=== PATIENT | female | born 1960 | race Caucasian/White ===

== ENCOUNTER → 2017-03-14 08:38 | Outpatient (CLI) | payer BC, MEDICARE, SELFPAY ==
--- NOTE | 2017-03-14 09:01 | MM_ITS ---
MM Dig screening mamm BI w/CAD CAD Screening ORDERING PHYSICIAN : Nia Pimentel PATIENT AGE: 56 years GENDER: Female COMPARISON: Previous mammograms: 20 INDICATION: . No hormones. No new complaints Previous bilateral breast reduction noncontributory family history TECHNIQUE: Standard CC and MLO images were obtained. R2 CAD reviewed. FINDINGS: No new areas of concern either breast Low-density breast bilaterally which optimize mammography value it as screening tool. There is been no significant change since previous studies from November 2011 and May 2013, and. RIGHT BREAST:Low-density breast no interval change LEFT BREAST:Low-density breast normal change IMPRESSION: Stable bilateral mammogram with no new areas of concern. Bilateral follow-up one year recommended BI-RADS Category: 2 Benign Finding(s) RECOMMENDED FOLLOW-UP: 1YR - 1 YEAR FOLLOW-UP (A letter has been sent to the patient regarding results of the study.) :
== END ==
PROVIDERS: PCP Nurse Practitioner Family; Visit Provider Nurse Practitioner Family
DX: Z12.31 Encounter for screening mammogram for malignant neoplasm of breast (principal)
CPT/HCPCS: 77067

== ENCOUNTER → 2018-09-15 09:11 | Outpatient (POV) | payer MEDICARE, SELFPAY | PROVIDERS: PCP Nurse Practitioner Family; Visit Provider Nurse Practitioner Family | DX: Z00.00 Encounter for general adult medical examination without abnormal findings (principal) ==

== ENCOUNTER → 2018-09-18 09:32 | Outpatient (CLI) | payer MEDICARE, SELFPAY ==
--- NOTE | 2018-09-18 09:35 | MM_ITS ---
MM Dig screening mamm BI w/CAD ORDERING PHYSICIAN : Nia Pimentel PATIENT AGE: 58 years GENDER: Female COMPARISON: March 2017 and May 2013 INDICATION: ITS.REASON: SCREENING no hormones. No complaints. Previous breast reduction Family history noncontributory TECHNIQUE: Standard CC and MLO images were obtained. R2 CAD reviewed. Additional MLO view left breast included FINDINGS: Low-density breast. Generalized fatty replacement. No areas of significant concern. No dominant no suspicious mass. . Scattered benign calcifications. No suspicious calcifications. IMPRESSION no significant change since prior study March 2017 CAD computer review highlights no areas of concern either. Bilateral follow-up in one year be adequate IMPRESSION: Stable bilateral mammogram. No new areas of concern. Bilateral follow-up in one year recommended Low-density fatty breast. Mammography most optimal and breast of this character. BI-RADS Category: 1 Negative RECOMMENDED FOLLOW-UP: 1YR 1 YEAR FOLLOW-UP (A letter has been sent to the patient regarding results of the study.)
== END ==
PROVIDERS: PCP Nurse Practitioner Family; Visit Provider Nurse Practitioner Family
DX: Z12.31 Encounter for screening mammogram for malignant neoplasm of breast (principal)
CPT/HCPCS: 77067

== ENCOUNTER → 2019-10-13 11:10 | Outpatient (POV) | payer MEDICARE, SELFPAY | PROVIDERS: Visit Provider Dermatology | DX: Z00.00 Encounter for general adult medical examination without abnormal findings (principal) ==

== ENCOUNTER → 2019-12-15 13:10 | Outpatient (POV) | payer SELFPAY | PROVIDERS: Visit Provider Dermatology | DX: Z00.00 Encounter for general adult medical examination without abnormal findings (principal) ==

== ENCOUNTER → 2020-02-15 09:23 | Outpatient (CLI) | payer MEDICARE, SELFPAY ==
--- NOTE | 2020-02-15 09:59 | XR_ITS ---
PROCEDURE: XR FOOT WT BEARING LT 3V CLINICAL INDICATION: pain COMPARISON: CR FTL3 FOOT-LT-3 VIEWS from 07/29/2015 FINDINGS: There is a nondisplaced oblique fracture involving the mid distal aspect of the 5th metatarsal. There is pes planus with degenerative changes in the talonavicular joint. Other findings:None. IMPRESSION: Nondisplaced 5th metatarsal fracture the Dictated by: Naldo Roberto MD 02/15/2020 16:49 Naldo Roberto MD in [place] 02/15/2020 16:49
--- NOTE | 2020-02-15 09:59 | XR_ITS ---
PROCEDURE: XR FOOT WT BEARING RT 3V CLINICAL INDICATION: pain COMPARISON: CR FTL3 FOOT-LT-3 VIEWS from 07/29/2015 FINDINGS: Mild hallux valgus with osteoarthritis for the 1st MTP joint and bunion formation. Small metallic density is present along the proximal and lateral aspect of the proximal phalanx of the 5th toe. There is moderate pes planus. The joint spaces are well-preserved. No significant degenerative/arthritic changes. No erosive changes evident. Other findings:None. IMPRESSION: Hallux valgus with pes planus. Small metallic density at the base and lateral aspect of the proximal phalanx of the 5th toe Dictated by: Naldo Roberto MD 02/15/2020 16:51 Naldo Roberto MD in [place] 02/15/2020 16:51
== END ==
PROVIDERS: PCP Nurse Practitioner Family; Visit Provider Podiatrist
DX: M79.672 Pain in left foot (principal); M79.671 Pain in right foot
CPT/HCPCS: 73630

== ENCOUNTER → 2020-03-15 11:21 | Outpatient (CLI) | payer MEDICARE, SELFPAY ==
--- NOTE | 2020-03-15 11:27 | XR_ITS ---
PROCEDURE: XR FOOT WT BEARING LT 3V CLINICAL INDICATION: PAIN COMPARISON: CR FTL3 FOOT-LT-3 VIEWS from 07/29/2015 CR XR FOOT WT BEARING RT 3V from 02/15/2020 CR XR FOOT WT BEARING LT 3V from 02/15/2020 FINDINGS: There is a healing mildly displaced fracture involving the shaft of the 5th metatarsal. There is medial angulation and mild medial displacement of the distal fracture fragment. The displacement and angulation has slightly increased. There is however developing callus formation consistent with healing. There are osteoarthritic changes of the talonavicular and navicular cuneiform joint with pes planus. IMPRESSION: Healing 5th displaced 5th metatarsal fracture with pes planus Dictated by: Naldo Roberto MD 03/15/2020 13:03 Naldo Roberto MD in [place] 03/15/2020 13:03
== END ==
PROVIDERS: PCP Nurse Practitioner Family; Visit Provider Podiatrist
DX: M79.672 Pain in left foot (principal)
CPT/HCPCS: 73630

== ENCOUNTER → 2020-03-16 08:45 | Outpatient (CLI) | payer MEDICARE, SELFPAY ==
--- NOTE | 2020-03-16 08:51 | MR_ITS ---
PROCEDURE: MR HEAD/BRAIN WO/W CON CLINICAL INDICATION: BLURRY VISION EVALUATE FOR CVA. ALTERED MENTAL STATUS. BUN:17 CRE:1.39 GFR:42 20ML PROHANCE GIVEN LOT:[id number] EXP: MAR 2022 COMPARISON: No exams were available for comparison TECHNIQUE: Routine multiplanar multi echo sequences are performed without and with gadolinium enhancement. FINDINGS: No evidence of acute infarction. No midline shift or mass effect. The cerebellopontine angles, cerebellum, and brainstem have an unremarkable appearance. Unremarkable white matter signal intensity. No enhancing lesions are evident. The pituitary, optic chiasm, corpus callosum, and craniocervical junction have an unremarkable appearance. No mastoid effusion or sinus air-fluid level. There is mild leftward nasal septal deviation. The hippocampal gyri are unremarkable in the temporal horns are symmetric. IMPRESSION: Negative MRI of the brain without and with contrast. No evidence of acute infarction Dictated by: Naldo Roberto MD 03/17/2020 09:25 Naldo Roberto MD in [place] 03/17/2020 09:25
--- NOTE | 2020-03-16 09:59 | CA_ITS ---
APPROVED REPORT Customs Inspector: Winifred Murcia RVT Laterality: Bilateral Study Quality: Good Indications: Dizziness and Vertigo, AMS,BLURRED VISION Risk Factors Hypertension: Hyperlipidemia Doppler Spectral Velocity Analysis ECA (R) 102.50/25.40 cm/s ECA (L) 71.90/12.20 cm/s dICA (R) 129.40/61.00 cm/s dICA (L) 96.00/38.60 cm/s Jackson (R) 96.30/33.70 cm/s Jackson (L) 71.80/27.70 cm/s pICA (R) 85.30/24.70 cm/s pICA (L) 94.30/35.20 cm/s dCCA (R) 78.30/27.60 cm/s dCCA (L) 89.10/37.70 cm/s pCCA (R) 85.40/24.80 cm/s pCCA (L) 99.40/35.10 cm/s Vert (R) 37.70/11.10 cm/s Vert (L) 50.60/21.40 cm/s ICA/CCA 1.65 ICA/CCA 1.08 Findings Study suggests no evidence of stenosis of the bilateral internal cartoid arteries. Antegrade flow seen bilateral vertebral arteries. Conclusion Study suggests no evidence of stenosis of the bilateral internal cartoid arteries. Antegrade flow seen bilateral vertebral arteries. Electronically signed by : Naldo Roberto MD 03/16/2020 16:07:20
== END ==
PROVIDERS: PCP Nurse Practitioner Family; Visit Provider Nurse Practitioner Family
DX: R41.82 Altered mental status, unspecified (principal); H53.10 Unspecified subjective visual disturbances
CPT/HCPCS: 70553; 93880; A9576

== ENCOUNTER → 2020-05-04 12:01 | Outpatient (CLI) | payer MEDICARE, SELFPAY ==
[2020-05-04 15:11] LABS: Coronavirus 19 IgG Antibody Negative (Negative); Coronavirus 19 IgM Antibody Negative (Negative)
== END ==
PROVIDERS: Visit Provider Internal Medicine Gastroenterology
DX: Z01.818 Encounter for other preprocedural examination (principal); Z20.822 Contact with and (suspected) exposure to COVID-19; Z13.810 Encounter for screening for upper gastrointestinal disorder
CPT/HCPCS: 36415; 86328

== ENCOUNTER 2020-05-06 11:16 | Day surgery (SDC) | payer MEDICARE, SELFPAY ==
[2020-05-03 14:15] VITALS: BMI 33.0
[2020-05-06] VITALS (10 sets, daily range): BP systolic 133–153; BP diastolic 87–106; PULSE 74–101; RESP 16–18; TEMP 36.2–36.8; O2SAT 94–98
--- NOTE | 2020-05-06 12:43 | HMH.ANESCL ---
[facility] Anesthesia Checklist - Patient Identification Patient Identification: Arm Band - Structural Data Admitted From: Home Planned Operative Procedure/s: EGD Consent for Planned Operative Procedure(s) Verified: Yes - NPO Status Verified Time NPO: 00:00 - Additional verifications Anesthesia Reactions: No Hx Blood Transfusions: No Blood Transfusion Reaction: No - Airway Assessment Dentition: Good Dentition - Neurological Assessment Level of Consciousness: Awake - Anesthesia Plan Anesthesia Risk discussed: Yes Anesthesia Plan: Verified ASA Class: III Anesthesia Type: MAC [facility] History I have reviewed the patient's past medical history: Yes Medical History: Reports:: Deep Vein Thrombosis, Hyperlipidemia, Lung Disease, Migraine Denies:: Cancer, Diabetes Mellitus Type 1, Diabetes Mellitus Type 2, Internal Pacemaker, MRSA, Seizures *Have you ever received a pneumonia vaccine?: No *Have you received a flu vaccine this season?: Yes Other Medical History: Reports: Other. Denies: Blood Transfusion Reaction Anesthesia experience/problems:: None Laterality Cases: Right: Arthroscopy Shoulder Other Surgeries: Yes: Hysterectomy-Total, Other. No: Pacemaker Amputation: No Fractures: No - *Social History Last grade of school completed: Advanced degree Smoking Status: Never smoker Alcohol Intake: current Alcohol Intake Frequency:: a few times a month Substance Use Type: other *Occupational Status:: unemployed Housing: house Household Members: spouse, family *Travel in the last 8 weeks: None Family Hx:: No significant family history
--- NOTE | 2020-05-06 12:58 | HMH.PROC ---
[facility] Procedure Note Procedure Note:: Upper Endoscopy Procedure Report: Esophagogastroduodenoscopy with cold biopsies and TTS balloon dilation Endoscopost: Mannie Campbell II, MD Referring Physician: TATI Leonardo Date of Procedure: May 06, 2020 Equipment: Olympus GIF 190 standard upper endoscope Sedation: MAC sedation Indications: Mrs. Rivas is a 59-year-old female with a history of GERD, esophageal chest pain and esophageal dyskinesia. The patient does report some recent swallowing difficulties. She was seen recently by Bailey DUFFY. The patient does report some bowel evacuation difficulties. The patient has been on Reglan, Motegrity, MiraLAX plus Citrucel. Overall she is doing much better than she had previously. EGD is performed for further evaluation. Her last EGD in July 2018 showed marked esophageal dysmotility as well as retained gastric food content. Procedure: Prior to the procedure, a history and physical exam was performed, and patient's medications and allergies were reviewed. The risks, benefits and alternatives of the sedation and procedure were discussed with the patient. All questions were answered and informed consent was obtained. The patient was brought to the procedure room. Patient identification and proposed procedure were verified by the physician and the nurse. The patient was placed in a left lateral decubitus position and the scope was passed under direct vision. Throughout the procedure, the patient's blood pressure, pulse, and oxygen saturations were monitored continuously. The upper GI endoscopy was accomplished without difficulty. The patient tolerated the procedure well. Findings: The scope was passed directly into the upper esophagus and advanced to the third portion of the duodenum. The post bulbar duodenum and duodenal bulb were normal with normal mucosa and conniventes. The scope was withdrawn through a normal duodenal bulb and pylorus into the stomach. There was some bile reflux with mild linear reactive gastropathy of the antrum and body of the stomach. The remainder of the antrum, body and fundus of the stomach were grossly normal. Upon retroflexion there was no hiatal hernia. 2 biopsies were taken in the antrum and along the lesser curvature for histology to rule out gastritis and/or H pylori. The scope was then withdrawn into the esophagus. There was no evidence of reflux esophagitis. 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 The entire esophagus was dilated to 60 Chinese/20 mm with a TTS hydrostatic balloon. There was some resistance at the cricopharyngeus. The remainder of the esophageal mucosa was normal. Impression: 1. Cricopharyngeal spasm status post dilation to 20 mm 2. Marked esophageal dysmotility ( corkscrew esophagus ). 3. Linear reactive gastropathy Plan: I will follow-up the biopsies. The patient is clearly improved with the promotility therapy. I would consider adding herbal Iberogast.
--- NOTE | 2020-05-06 13:02 | P.PN_ITS ---
[facility] Anesthesia Record Part I Intake, IV Amount: 200 Estimated blood loss (mL): 0 Urine output (mL): 0 Blood Pressure: 136/90 SaO2: 94 Pulse Rate: 74 Respiratory Rate: 16 Temperature: 97.4 F Patient is:: Awake Stable to PACU at:: 13:00
--- NOTE | 2020-05-06 15:01 | P.PN_ITS ---
[facility] Anesthesia Record Part II Discharge Time: 14:00 Destination: Surgical Day Care (OP Surgery) PACU nurse assessment reviewed?: Yes Patient Condition:: Good Anesthesia Complications:: None Swallowing reflex intact?: Yes Cyanosis?: No Blood Pressure: 140/87 Pulse Rate: 98 Temperature: 97.2 F Mental Status: Alert & Oriented Pain level:: 0 Nausea and/or vomitting:: None Intake, IV Amount: 200
== END 2020-05-06 14:00 | disposition home or self-care (01) ==
LOC: OUTP 11:18
PROVIDERS: PCP Nurse Practitioner Family; Visit Provider Internal Medicine Gastroenterology
PROC: 0DJ08ZZ Inspection of Upper Intestinal Tract, Via Natural or Artificial Opening Endoscopic (ICD-10-PCS; CPT 43235; principal; 2020-05-06 12:30)
DX: J39.2 Other diseases of pharynx (principal); K22.4 Dyskinesia of esophagus; K31.9 Disease of stomach and duodenum, unspecified; E78.5 Hyperlipidemia, unspecified; J98.4 Other disorders of lung; G43.909 Migraine, unspecified, not intractable, without status migrainosus; I82.409 Acute embolism and thrombosis of unspecified deep veins of unspecified lower extremity; Z79.899 Other long term (current) drug therapy; Z88.2 Allergy status to sulfonamides; Z88.7 Allergy status to serum and vaccine
CPT/HCPCS: 43239; 43249; 88305; C1726

== ENCOUNTER → 2020-05-16 13:24 | Outpatient (CLI) | payer MEDICARE, SELFPAY ==
--- NOTE | 2020-05-16 13:28 | MM_ITS ---
PROCEDURE: MM DIG SCREENING MAMM BI W/CAD Digital Breast Tomosynthesis Included CLINICAL INDICATION: SCREENING There is no personal or family history of breast cancer. There has been previous bilateral breast reduction surgery. COMPARISON: MG DMSB DIG MAMM-SCREEN BELA from 05/22/2013 MG [facility] MM Dig screening mamm BI w/CAD from 03/14/2017 MG MM DIG SCREENING MAMM BI W/CAD from 09/18/2018 TECHNIQUE: Standard CC and MLO images and 3D Tomosynthesis was obtained. R2 CAD reviewed. FINDINGS: Breasts are composed primarily of minimal scattered fibroglandular densities in each breast. There are no CAD markings. There are few benign-appearing microcalcifications in each breast. There is no new or suspicious lesion in either breast and no suspicious microcalcifications. IMPRESSION: Fatty type breast parenchyma with no suspicious lesions seen BI-RAD Category: 2 Benign Finding(s) FOLLOW-UP: 1YR 1 Year Follow-up (A letter has been sent to the patient regarding results of the study.) Dictated by: Dr. Daniel Barroso MD 05/20/2020 08:59 Dr. Daniel Barroso MD in [place] 05/20/2020 08:59
== END ==
PROVIDERS: PCP Nurse Practitioner Family; Visit Provider Nurse Practitioner Family
DX: Z12.31 Encounter for screening mammogram for malignant neoplasm of breast (principal)
CPT/HCPCS: 77063; 77067

== ENCOUNTER 2020-10-12 08:00 | Outpatient (RCR) | payer OTHER, SELFPAY | END 2020-11-09 15:00 | disposition home or self-care (01) | LOC: PT.CARL 08:00 | PROVIDERS: Visit Provider Anesthesiology Pain Medicine | DX: M53.3 Sacrococcygeal disorders, not elsewhere classified (principal); M51.26 Other intervertebral disc displacement, lumbar region; M47.817 Spondylosis without myelopathy or radiculopathy, lumbosacral region | CPT/HCPCS: 97010; 97014; 97033; 97035; 97110; 97140; 97163; 97164; G0283 ==

== ENCOUNTER → 2020-11-01 13:54 | Outpatient (POV) | payer SELFPAY | PROVIDERS: Visit Provider Dermatology | DX: Z00.00 Encounter for general adult medical examination without abnormal findings (principal) ==

== ENCOUNTER 2023-02-19 16:23 | Outpatient (CLI) | payer MEDICARE, SELFPAY ==
[2023-02-19 18:08] LABS: Barbiturates Screen,Urine Negative ng/ml (<200); Benzodiazepines Screen,Urine Negative ng/ml (<200); Cocaine Screen,Urine Negative ng/ml (<300); Methadone Screen,Urine Negative ng/ml (<300); Opiate Screen,Urine Positive ng/ml (<300); Phencyclidine Screen,Urine Negative ng/ml (<25)
[2023-02-19 18:12] LABS: Cannabinoid Screen,Urine Negative ng/ml (<50)
[2023-02-20 14:44] LABS: Amphetamine/Metha Screen,Urine Negative ng/ml (<1000)
== END 2023-02-19 23:59 ==
LOC: LAB.DROPOF 16:24
PROVIDERS: PCP Family Medicine; Visit Provider Family Medicine
DX: G89.29 Other chronic pain (principal); M54.9 Dorsalgia, unspecified
CPT/HCPCS: 80307

== ENCOUNTER 2024-02-27 14:20 | Outpatient (CLI) | payer MEDICARE, SELFPAY ==
[2024-02-27 16:26] LABS: Basophils # 0.1 K/mm3 (0-0.2); Basophils % 0.6 % (0.1-2.0); Eosinophils # 0.8 K/mm3 (0.0-0.4); Eosinophils % 9.7 % (0.1-12.0); Hematocrit 34.2 % (37.0-47.0); Hemoglobin 10.7 g/dL (12.2-16.2); Lymphocytes # 1.4 K/mm3 (0.7-4.5); Lymphocytes % 16.6 % (10-50); Mean Corpuscular HGB Conc 31.3 g/dL (31.8-35.4); Mean Corpuscular Hemoglobin 27.8 pg (27.0-31.2); Mean Corpuscular Volume 88.8 fl (81-99); Mean Platelet Volume 9.2 fl (7.4-10.4); Monocytes # 0.5 K/mm3 (0.1-1.0); Neutrophils # 5.6 K/mm3 (1.8-7.8); Neutrophils % 66.3 % (37.0-80.0); Platelet Count 548 K/mm3 (142-424); Red Blood Count 3.85 M/mm3 (4.20-5.40); Red Cell Distribution Width 14.7 % (11.5-17.5); White Blood Count 8.4 K/mm3 (4.8-10.8)
[2024-02-27 16:55] LABS: Albumin Level 3.7 g/dl (3.5-5.0); Chloride 100 mmol/L (98-107); Potassium 5.1 mmoL/L (3.5-5.1); Sodium 133 mmol/L (136-145)
[2024-02-27 16:58] LABS: Alanine Aminotransferase 14 U/L (12-78); Albumin/Globulin Ratio 1.4 (1.1-1.8); Alkaline Phosphatase 140 U/L (38-126); Anion Gap 13.1 mEq/L (5-15); Aspartate Amino Transferase 21 U/L (14-36); Bilirubin,Total 0.4 mg/dl (0.2-1.3); Blood Urea Nitrogen 21 mg/dl (7-17); Calcium 9.9 mg/dl (8.4-10.2); Carbon Dioxide 25 mmol/L (22.0-30.0); Estimated Glomerular Filt Rate 38 ml/min (>60); GFR (African American) 46 ML/MIN (>60); Globulin 2.7 g/dL (1.3-3.2); Glucose 98 mg/dl (74-100); Total Protein,Serum 6.4 g/dl (6.3-8.2)
== END 2024-02-27 23:59 | disposition home or self-care (01) ==
LOC: LAB.DROPOF 02-28 09:03
PROVIDERS: PCP Family Medicine; Visit Provider Family Medicine
DX: S72.009A Fracture of unspecified part of neck of unspecified femur, initial encounter for closed fracture (principal)
CPT/HCPCS: 80053; 85025

== ENCOUNTER 2024-07-21 11:15 | Outpatient (CLI) | payer MEDICARE, SELFPAY ==
--- OUTSIDE RECORDS SUMMARY | 2024-06-17 07:06 | XMS_ITS ---
[facility] [place] Address [address] [place] [address] Care Team Providers Care Sales And Service Advisor Name Role Phone Manolo Campbell Primary Care Provider unknown, Unknown Unavailable Unavailable REASON FOR VISIT Refills Medications Medication SIG (Take, Route, Frequency, Duration) Notes Start Date End Date Status Butorphanol Tartrate 10 MG/ML 1 spray Nasally in each nostril for migraines, may repeat in 60-90 minutes PRN, not for daily use. for 30 days 06/17/2024 07/17/2024 Active Qulipta 60 MG 1 tablet Orally once a day for 30 days 07/17/2024 Active HYDROcodone-Acetaminophen 7.5-325 MG 1 tab(s) orally twice a day, may take a third tablet as needed for severe breakthrough pain for 30 days 06/17/2024 07/17/2024 Active Gabapentin 600 MG 1 tablet Orally twic e a day for 30 days 06/17/2024 Active Promethazine HCl 25 MG 1 tablet as neede d Orally once to twice a day as needed for nausea for 30 days Active Encounters Encounter Location Date Provider [facility] [address] [place] [address] 06/17/2024 Manolo Campbell Migraine, unspecified, not intractable, without status migrainosus* G43.909 Assessments Encounter Date Diagnosis (ICD Code) Assessment Notes Treatment Notes Treatment Clinical Notes Section Notes 06/17/2024 Migraine, unspecified, not intractable, without status migrainosus* (ICD-10 - G43.909) *Will CTM benefit from Qulipta. Patient currently takes Ubrelvy, butorphanol IN, and nortriptyline with persistent migraines 2-3 times per week. Patient has tried and failed ibuprofen/APAP, sumatriptan and rizatriptan. Plan Of Treatment Medication Medication Name Sig Start Date Stop Date Notes Butorphanol Tartrate 10 MG/ML 1 spray Na jason in each nostril for migraines, may repeat in 60-90 minutes PRN, not for daily use. for 30 days 06/17/2024 07/17/2024 Qulipta 60 MG 1 tablet Orally once a day for 30 days 07/17/2024 HYDROcodone-Acetaminophen 7.5-325 MG 1 tab(s) orally twice a day, may take a third tablet as needed for severe breakthrough pain for 30 days 06/17/2024 07/17/2024 Gabapentin 600 MG 1 tablet Orally twic e a day for 30 days 06/17/2024 Promethazine HCl 25 MG 1 tablet as neede d Orally once to twice a day as needed for nausea for 30 days Next Appt Details Provider Name:Miguel Ángel Moreland , 08/12/2024 10:40:00 AM, [address], [place], [address], Progress Notes * Rajwinder RYANOB:1960 (63 yo F)Acc No.[id number]:06/17/2024 Patient: Ced IBARRARere :1960 A ge:63 Y S ex:Female Address:[address] [place] [address], [place] [address] * Refills Refill Butorphanol Tartrate Solution, 10 MG/ML, Nasally, 15 mL, 1 spray, in each nostril for migraines, may repeat in 60-90 minutes PRN, not for daily use., 30 days Refill Qulipta Tablet, 60 MG, Orally, 30 Tablet, 1 tablet, once a day, 30 days Refill Promethazine HCl Tablet, 25 MG, Orally, 60 tablets, 1 tablet as needed, once to twice a day as needed for nausea, 30 days Refill HYDROcodone-Acetaminophen Tablet, 7.5-325 MG, orally, 75 tablets, 1 tab(s), twice a day, may take a third tablet as needed for severe breakthrough pain, 30 days, Refills=0 Refill Gabapentin Tablet, 600 MG, Orally, 60 Tablet, 1 tablet, twice a day, 30 days * true * Date: Generated for Esme haji/Lulu/Philip on: 0 07/22/2024 11:42 AM EDT
--- OUTSIDE RECORDS SUMMARY | 2024-07-15 06:20 | XMS_ITS ---
Author Organization [facility] Address [address] [address] Care Team Providers Care Lime Mixer Name Role Phone Manolo Campbell Primary Care Provider unknown, Unknown Unavailable Unavailable Miguel Ángel Moreland Unavailable [phone] Allergies Allergen (clinical drug ingredient) Drug/Non Drug Allergy documented on EMR Reaction Allergy Type Onset Date Status SULFA (uncoded) Rash Allergy Acti ve ENTEX LA (uncoded) Unknown Allergy A ctive TETNUS (uncoded) Unknown Allergy Act avel TORADOL (uncoded) Upset stomach Allergy Active ciprofloxacin Cipro Swelling, mouth, SOB Drug Allergy Active valproate Depakote Unknown Drug Allergy Active REASON FOR VISIT right hip pain Medications Medication SIG (Take, Route, Frequency, Duration) Notes Start Date End Date Status Butorphanol Tartrate 10 MG/ML 1 spray Nasally in each nostril for migraines, may repeat in 60-90 minutes PRN, not for daily use. for 30 days Active HYDROcodone-Acetaminophen 7.5-325 MG 1 tab(s) orally three times a day for 30 days Active Gabapentin 600 MG 1 tablet Orally twic e a day for 30 days Active Qulipta 60 MG 1 tablet Orally once a day for 30 days Active Promethazine HCl 25 MG 1 tablet as neede d Orally once to twice a day as needed for nausea for 30 days Active Vital Signs Blood pressure systolic 122 mm Hg 07/16/19 25 Blood pressure diastolic 76 mm Hg 025 Height 70 in 07/15/2024 Weight 171 lbs 07/15/2024 BMI 24.53 BMI 07/15/2024 Encounters Encounter Location Date Provider Diagnosis [facility] [address] [place] [address] 07/15/2024 Miguel Ángel Garciasirirose marie Presence of right artificial hip joint* Z96.641 ; termite treater helper (current) drug therapy* Z79.899 ; Right foot pain* M79.671 ; Sacroiliac dysfunction* M53.3 ; Cervical spondylosis WRM M47.812 ; Migraine, unspecified, not intractable, without status migrainosus* G43.909 and Myofascial Pain* M79.18 Assessments Encounter Date Diagnosis (ICD Code) Assessment Notes Treatment Notes Treatment Clinical Notes Section Notes 07/15/2024 Presence of right artificial hip joint* (ICD-10 - Z96.641) *On 05/24/24 the patient fell at home after her left foot was caught in bedding leading to her falling on her right hip, site of right JOLIE, with subsequent dislocation. Records for hospital stay have been uploaded to her chart, pertinent for manual relocation of JOLIE but also noted fever during her stay with no know source after evaluation and FUP with ID. Patient was not discharged on a course of PO abx but has appointments scheduled to see her PCP and orthopedist at the end of June 2024. Patient was prescribed 5 mg Percocet during her hospital stay noting that her baseline 5 mg [place] has been insufficient in management of her pain following fall. 07/15/2024 senior living (current) drug therapy* (ICD-10 - Z79.899) *Will trial rotation of her 5 mg BID [place] to 7.5 mg TID for acute worsening pain following dislocation while she completed home health PT to rehabilitate her right hip perimusculature. Records in chart from her hospital stay including details surrounding unidentified fever that ID could not localize and did not treat with abx. Scheduled to see her PCP and orthopedist at the end of June 2024. Will maintain acute dose increase over the next two months with plans/consideratio n for taper back to 5 mg BID around August 2024. 07/15/2024 Right foot pain* (ICD-10 - M79.671) *Patient is s/p recovery from her right foot hardware removal and hallux valgus correction from 04/30/24 with noted increased pain but states having received rx from her surgeon for her baseline opiate dosing but to allow being taken every 4 hours as needed. She did not pickling grader the prescription sent by our office. 07/15/2024 Sacroiliac dysfunction* (ICD-10 - M53.3) *Patient presents with symptoms of SI and lumbar pain with right sided compensations from antalgic gait over the prolonged period having pain/dysfunction. The localized pain without neurological loss may be indicative of local ligamentous persistent sprain. This would affect pain locally and biomechanics and the proximal and distal joint attachments. Adaptive weakness in the hip is also present, and this will further propagate pain in the lumbosacral spine. 07/15/2024 Cervical spondylosis WRM (ICD-10 - M47.812) 07/15/2024 Migraine, unspecified, not intractable, without status migrainosus* (ICD-10 - G43.909) *Will CTM benefit from Qulipta. Patient currently takes Ubrelvy, butorphanol IN, and nortriptyline with persistent migraines 2-3 times per week. Patient has tried and failed ibuprofen/APAP, sumatriptan and rizatriptan. 07/15/2024 Myofascial Pain* (ICD-10 - M79.18) Plan Of Treatment Medication Medication Name Sig Start Date Stop Date Notes Butorphanol Tartrate 10 MG/ML 1 spray Na jason in each nostril for migraines, may repeat in 60-90 minutes PRN, not for daily use. for 30 days HYDROcodone-Acetaminophen 7.5-325 MG 1 tab(s) orally three times a day for 30 days Gabapentin 600 MG 1 tablet Orally twic e a day for 30 days Qulipta 60 MG 1 tablet Orally once a day for 30 days Promethazine HCl 25 MG 1 tablet as neede d Orally once to twice a day as needed for nausea for 30 days Next Appt Details Follow Up: 4 Weeks, Reason: Hip pain Provider Name:Miguel Ángel Moreland , 08/12/2024 10:40:00 AM, [address], [place], [address], Progress Notes * Nae RYAN:1960 (63 yo F)Acc No.[id number]:07/15/2024 Patient: Rere SHAIKH Provider: Gerardo Moreland PA-C :1960 A ge:63 Y S ex:Female Date:07/15/2024 Address:[facility] [address] [place], [id number] Pcp:Manolo Campbell Check Out:10:50 AM EST Subjective: * Chief Complaints: * 1 . Right hip pain. * HPI: B ack or Hip Pain: 07/15/24 - Zaria tom presents regarding r ight lower back pain at waistline along with aching pain across her anterior thigh and medial lower leg with N/T distal to her ankle in relation to severe fracture in 2021. Baseline pain became worse around August 2023 after tripping over her dog and landing on her hands and knees. Last advanced i maging completed > 5 years ago. PT last completed > 5 years, attempts HEP but difficult to complete 2/2 pain associated with completion. Lumbar pain w orse with walking after a short period. No surgeries for lower back. 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 Ryan caught them with onset of lumbar pain. Mild to moderate relief noted for a few days after her bilateral L4-S1 MBB while shortly after completing her bilateral S1-4 LBB she has noted more moderate to significant relief as she felt the pain after her LMBB was lower than where the injection was completed. On 05/24/24 the patient fell at home after her left foot was caught in bedding leading to her falling on her right hip, site of right JOLIE, with subsequent dislocation. Records for hospital stay have been uploaded to her chart, pertinent for manual relocation of JOLIE but also noted fever during her stay with no know source after evaluation and FUP with ID. Patient was not discharged on a course of PO abx but has appointments scheduled to see her PCP and orthopedist at the end of June 2024. Patient was prescribed 5 mg Percocet during her hospital stay noting that her baseline 5 mg [place] has been insufficient in management of her pain following fall. Will trial rotation of her 5 mg [place] to 7.5 mg BID with PRN third tablet available every other day vs over the next two weeks for acute worsening pain following dislocation while she completed home health PT to rehabilitate her right hip perimusculature. Records in chart from her hospital stay including details surrounding unidentified fever that ID could not localize and did not treat with abx. Scheduled to see her PCP and orthopedist at the end of June 2024. Will maintain acute dose increase over the next two months with plans/consideration for taper back to 5 mg BID around August 2024. Plan: CTM FUP with orthopedics regarding right hip, will increase to [place] 7.5 mg TID over the next month and plan to return to 5 mg BID dosing at that time pending further recovery. * ROS: 0 1. General: Default for all 1 3 systems reviewed, all negative unless indicated otherwise. * Medical History: M igraines, Asthma, Kidney stones, Pneumonia x 2, Covid, Left leg broken/ left ankle broken, COPD. * Surgical History: H ysterectomy 2006, Right radial fx 2002, Right shoulder Arthroscopy 1996, Breast reduction 1994, Tubal ligation 1990, Ovarian cyst 1989, Right knee laproscopic procedure 2007, Right foot surgery 08/24/2021, Hip Replacement - right , Right foot - fixed joints/hardware removal . * Hospitalization/Major Diagno stic Procedure: S everal episodes of kidney stones , Right knee 2007, Kidney Stone, Pnuemonia 11/2007, Kidney stones, inflamed gallbladder 12/2021, Dislocated R Hip and Fever- 6 days [facility] 05/24/2024. * Family History: F ather: 50 yrs, Heart disease, leukemia, diagnosed with Cancer. M other: alive 74 yrs. S iblings: alive, diagnosed with Diabetes. C hildren: alive. 2 brother(s) , 1 sister(s) - healthy. 2 son(s) - healthy. . Diabetes, cancer, hypertension, heart disease. * Social History: G eneral: P ersonal History M arital status M arried / Partnered W hat is your work status? D isabled Marital status: . Work history and current status: Disabled. P atient quit smoking November, Patient last worked December 10 2006. Is still being paid by [employer]. Previous smoker, smoked 1 packs per day for 10 years. Denies alcohol consumption and recreational drug use. * Medications: T aking Butorphanol Tartrate 10 MG/ML Solution 1 spray Nasally in each nostril for migraines, may repeat in 60-90 minutes PRN, not for daily use. , stop date 07/17/2024, Taking Qulipta 60 MG Tablet 1 tablet Orally once a day , stop date 07/17/2024, Taking Promethazine HCl 25 MG Tablet 1 tablet as needed Orally once to twice a day as needed for nausea , Taking HYDROcodone-Acetaminophen 7.5-325 MG Tablet 1 tab(s) orally twice a day, may take a third tablet as needed for severe breakthrough pain , stop date 07/17/2024, Taking Gabapentin 600 MG Tablet 1 tablet Orally twice a day , Discontinued oxyCODONE-Acetaminophen , Notes to Pharmacist: enough for 5 days, Discontinued HYDROcodone Bitartrate ER , Notes to Pharmacist: *Please review and pick correct strength-formulation from [employer] options. If intended option is not shown, discontinue and re-order from Quick Search*, Discontinued Gabapentin 300 MG Capsule , Discontinued tiZANidine HCl , Notes to Pharmacist: *Please review and pick correct strength-formulation from [employer] options. If intended option is not shown, discontinue and re-order from Quick Search*, Discontinued Cymbalta 60 MG Capsule Delayed Release Particles 1 capsule orally 2x daily , Notes to Pharmacist: 90 day prescription, Discontinued Ventolin HFA 108 (90 Base) MCG/ACT Aerosol Solution , Discontinued Xarelto 20 MG Tablet , Discontinued Ventolin HFA 108 (90 Base) MCG/ACT Aerosol Solution , Discontinued Gabapentin 600 MG Tablet 1 tab(s) orally twice daily , Discontinued HYDROcodone-Acetaminophen 5-325 MG Tablet 1 tab(s) orally two to three times daily as needed for severe breakthrough pain , Discontinued Butorphanol Tartrate 10 MG/ML Solution 1 spray(s) intranasally in each nostril for migraines, may repeat in 60-90 minutes PRN, not for daily use. , Discontinued Promethazine HCl 25 MG Tablet 1 tab(s) orally once to twice daily as needed for nausea , Medication List reviewed and reconciled with the patient * Allergies: C ipro: Swelling, mouth, SOB, SULFA: Rash, ENTEX LA, TETNUS, TORADOL: Upset stomach, Depakote. Objective: * Vitals: H t:70in, Wt:171lbs, BMI:24.53BMI, BP:122/76mm Hg, HR:81/min, Pain Scale:8. * Examination: G eneral examination: General appearance: i n no acute distress, no suicidal ideation, normal affect. Gait and Posture A ntalgic Gait, patient presents in wheelchair to ambulate 2/2 recent hospital stay. Neck, thyroid : n ormal ROM of C spine for age, non-tender, normal alignment. Heart: n o signs of cyanosis or circulatory insufficiency.? Lungs: n o evidence of respiratory distress. Abdomen: n ormal. Neurologic exam: n o evidence of sedation. Extremities: n o clubbing, edema, or rash. Skin: n o obvious bruise or breakage. ? Assessment: * Assessment: 1. P resence of right artificial hip joint* - Z96.641 (Primary) N otes :*On 05/24/24 the patient fell at home after her left foot was caught in bedding leading to her falling on her right hip, site of right JOLIE, with subsequent dislocation. Records for hospital stay have been uploaded to her chart, pertinent for manual relocation of JOLIE but also noted fever during her stay with no know source after evaluation and FUP with ID. Patient was not discharged on a course of PO abx but has appointments scheduled to see her PCP and orthopedist at the end of June 2024. Patient was prescribed 5 mg Percocet during her hospital stay noting that her baseline 5 mg [place] has been insufficient in management of her pain following fall. 2 . L kim term (current) drug therapy* - Z79.899 R isk :High S pecify :*From previous visit in 2021 before patient self-discharged: failed to show for random toxicology but per pt she was unable to arrange a ride and was limited due to left leg fracture. Will monitor pt in high risk status and notified her that we will need to see her in person for any f/u related to medication management. Pt agrees and was apologetic for failure to show. N otes :*Will trial rotation of her 5 mg BID [place] to 7.5 mg TID for acute worsening pain following dislocation while she completed home health PT to rehabilitate her right hip perimusculature. Records in chart from her hospital stay including details surrounding unidentified fever that ID could not localize and did not treat with abx. Scheduled to see her PCP and orthopedist at the end of June 2024. Will maintain acute dose increase over the next two months with plans/consideration for taper back to 5 mg BID around August 2024. 3 . R ight foot pain* - M79.671 N otes :*Patient is s/p recovery from her right foot hardware removal and hallux valgus correction from 04/30/24 with noted increased pain but states having received rx from her surgeon for her baseline opiate dosing but to allow being taken every 4 hours as needed. She did not pickling grader the prescription sent by our office. 4 . S acroiliac dysfunction* - M53.3 N otes :*Patient presents with symptoms of SI and lumbar pain with right sided compensations from antalgic gait over the prolonged period having pain/dysfunction. The localized pain without neurological loss may be indicative of local ligamentous persistent sprain. This would affect pain locally and biomechanics and the proximal and distal joint attachments. Adaptive weakness in the hip is also present, and this will further propagate pain in the lumbosacral spine. 5 . C ervical spondylosis WRM - M47.812 6 . M igraine, unspecified, not intractable, without status migrainosus* - G43.909 N otes :*Will CTM benefit from Qulipta. Patient currently takes Ubrelvy, butorphanol IN, and nortriptyline with persistent migraines 2-3 times per week. Patient has tried and failed ibuprofen/APAP, sumatriptan and rizatriptan. 7 . M yofascial Pain* - M79.18 Plan: * Treatment: 2. O thers Increase HYDROcodone-Acetaminophen Tablet, 7.5-325 MG, 1 tab(s), orally, three times a day, 30 days, 90 Tablet, Refills 0; S tart Gabapentin Tablet, 600 MG, 1 tablet, Orally, twice a day, 30 days, 60 Tablet. * Follow Up: 4 Weeks (Reason: Hip pain) * Billing Information: * Visit Code: * Procedure Codes: Care Plan Details* * Electronic signature of Josiah or VANDANA Moreland PA-C on 07/22/2024 at 11:42 AM EDT Sign off status: Pending * Provider: Gerardo Moreland PA-C Date: 0 07/15/2024 Generated for Esme haji/Lulu/Philip on: 07/22/2024 11:42 AM EDT History and Physical Notes * Examination Category Sub-Category Detail Notes Category Not es General examination Neck, thyroid : normal ROM o f C spine for age, non-tender, normal alignment Heart: no signs of cyanosis or circulatory insufficiency Lungs: no evidence of respi ratory distress Extremities: no clubbing, edema, or rash General appearance: in no acute distress , no suicidal ideation, normal affect Skin: no obvious bruise or breakage Neurologic exam: no evidence of sedat ion Abdomen: normal Gait and Posture Antalgic Gait, patie nt presents in wheelchair to ambulate 2/2 recent hospital stay
--- OUTSIDE RECORDS SUMMARY | 2024-07-15 06:50 | XMS_ITS ---
[facility] Organization [facility] Address [address] [place] [address] Care Team Providers Care Cancer Genetics Assistant Name Role Phone Manolo Campbell Primary Care Provider unknown, Unknown Unavailable Unavailable REASON FOR VISIT Refills Medications Medication SIG (Take, Route, Frequency, Duration) Notes Start Date End Date Status HYDROcodone-Acetaminophen 7.5-325 MG 1 tab(s) orally three times a day for 30 days 07/15/2024 08/14/2024 Active Butorphanol Tartrate 10 MG/ML 1 spray Nasally in each nostril for migraines, may repeat in 60-90 minutes PRN, not for daily use. for 30 days 07/15/2024 08/14/2024 Active Qulipta 60 MG 1 tablet Orally once a day for 30 days 08/14/2024 Active Promethazine HCl 25 MG 1 tablet as neede d Orally once to twice a day as needed for nausea for 30 days Active Gabapentin 600 MG 1 tablet Orally twic e a day for 30 days 07/15/2024 Active Encounters Encounter Location Date Provider [facility] [address] [place] [address] 07/15/2024 Manolo Campbell Migraine, unspecified, not intractable, without status migrainosus* G43.909 Assessments Encounter Date Diagnosis (ICD Code) Assessment Notes Treatment Notes Treatment Clinical Notes Section Notes 07/15/2024 Migraine, unspecified, not intractable, without status migrainosus* (ICD-10 - G43.909) *Will CTM benefit from Qulipta. Patient currently takes Ubrelvy, butorphanol IN, and nortriptyline with persistent migraines 2-3 times per week. Patient has tried and failed ibuprofen/APAP, sumatriptan and rizatriptan. Plan Of Treatment Medication Medication Name Sig Start Date Stop Date Notes HYDROcodone-Acetaminophen 7.5-325 MG 1 tab(s) orally three times a day for 30 days 07/15/2024 08/14/2024 Butorphanol Tartrate 10 MG/ML 1 spray Na jason in each nostril for migraines, may repeat in 60-90 minutes PRN, not for daily use. for 30 days 07/15/2024 08/14/2024 Qulipta 60 MG 1 tablet Orally once a day for 30 days 08/14/2024 Promethazine HCl 25 MG 1 tablet as neede d Orally once to twice a day as needed for nausea for 30 days Gabapentin 600 MG 1 tablet Orally twic e a day for 30 days 07/15/2024 Next Appt Details Provider Name:Miguel Ángel Moreland , 08/12/2024 10:40:00 AM, [address], [place], [address], Progress Notes * Rajwinder RYANOB:1960 (63 yo F)Acc No.[id number]:07/15/2024 Patient: Rere SHAIKH :1960 A ge:63 Y S ex:Female Address:[address] [place] [address], [place] [address] * Refills Refill HYDROcodone-Acetaminophen Tablet, 7.5-325 MG, orally, 90 Tablet, 1 tab(s), three times a day, 30 days, Refills=0 Refill Butorphanol Tartrate Solution, 10 MG/ML, Nasally, [...] as needed for nausea, 30 days Refill Gabapentin Tablet, 600 MG, Orally, 60 Tablet, 1 tablet, twice a day, 30 days * true * Date: Generated for Esme haji/Lulu/Philip on: 0 07/22/2024 11:42 AM EDT
--- OUTSIDE RECORDS SUMMARY | 2024-07-22 11:42 | XMS_ITS | Clinical Summary ---
Author Organization [facility] Address [address] [place] [address] Care Team Providers Care Systems Specialist Name Role Phone Alyse Mack APRN Primary Care Provider [phone] Family History Medical History Relation Name Comments Heart attack Father Leukemia Father Diabetes Other 1 Hypertension Other 2 Relation Name Status Comments Father Other 1 Other 2 Social History Tobacco Use Types Packs/Day Years Used Date Smoking Tobacco: Every Day Comments:Smokes 1 pack of ci garettes per day Alcohol Use Standard Drinks/Week Comments Yes 0 (1 standard drink = 0.6 oz pure alcohol) Alcoholic Drinks/day: Occasional alcohol use Comments Unknown Sex and Gender Information Value Date Recorded Sex Assigned at Not on file Legal Sex Female 8:14 PM EDT Gender Identity Not on file Sexual Orientation Not on file Last Filed Vital Signs Vital Sign Reading Time Taken Comments Blood Pressure - - Pulse - - Temperature - - Respiratory Rate - - Oxygen Saturation - - Inhaled Oxygen Concentration - - Weight 97.1 kg (214 lb 2.1 oz) 08/05/2015 1:52 P M EDT Height 177.8 cm (5' 10 ) 08/05/2015 1:52 PM EDT Body Mass Index 30.72 08/05/2015 1:52 PM EDT Plan of Treatment Not on file Care Teams Systems Specialist Relationship Specialty Start Date End Date Alyse Mack APRN [address] [place] [address] PCP - General 06/24/20
--- OUTSIDE RECORDS SUMMARY | 2024-07-22 11:43 | XMS_ITS | Data Portability ---
Author Organization [employer] [place] [facility] [place] Address [address] [place] [address] Assessment Encounter Date Assessment Date Assessment LastModified by Organization Details LastModified Time 03/28/2022 03/28/2022 Refuses Physical therapy for increased falls. [email or web address] Not available 03/28/2022 10:00:19 Plan of Treatment Reminders Order Date Submit Date Provider Last Modified By Organization Details Last Modified Time Details Appointments None recorded. Lab vitamin D, 25-hydroxy, total, serum 2022 023 [email or web address], [address], [place], [address], 3 05:12:17 HbA1c (hemoglobin A1c), blood [address], [address], 3 09:37:26 microalbumi n/creatinin e, mass ratio, urine [address], [address], 3 09:37:26 CMP, serum or plasma 2022 023 [email or web address], [address], [place], [address], 3 05:12:16 lipid panel, serum 2022 023 [facility], [address], [place], [address], 3 05:12:16 CBC w/ auto diff 2022 023 [email or web address], [address], [place], [address], 3 05:12:16 TSH, serum or plasma 2022 023 [facility], [address], [place], [address], 3 05:12:17 HbA1c (hemoglobin A1c), blood 2021 [email or web address], [address], 2 14:52:25 rapid flu (A+B) [address], [address], 2 14:18:16 rapid SARS CoV 2 Ag, QL, IA, upper respiratory specimen [address], [address], 2 14:18:16 Referral None recorded. Procedures None recorded. Surgeries None recorded. Imaging None recorded. Medication Orders montelukast 10 mg tablet 2022 023 [facility], [address] [place], [address], 3 09:38:14 Xarelto 20 mg tablet 2022 023 [facility], [facility] [place], [address], 3 09:38:17 ondansetron HCl 8 mg tablet 2021 ice, [address] [place] [address], [id number], 15:21:26 Ubrelvy 100 mg tablet 2021 ice, [address] [place] [address], [id number], 15:21:25 Ventolin HFA 90 mcg/actuati on aerosol [facility]er [facility], [address] [place] [address], [id number], 15:21:25 montelukast 10 mg tablet 2021 ice, [address] [place] [address], [id number], 15:21:26 Xarelto 20 mg tablet 2021 ice, [address] [place] [address], [id number], 2 15:21:25 azithromyci n 250 mg tablet 2021 [email or web address] [facility], [facility] [place], [address], 3 09:05:43 Depo-Medrol 80 mg/mL suspension for injection 2021 hung [facility], [address] [place], [address], 2 14:04:16 Patient TargetsNo targets recorded. Patient Instructions Encounter Date Encounter Id Patient Instructions Last Modified By Organization Details Last Modified Time 11/22/2021 [id number] Take medication as prescribed. Increase fluids and rest. If symptoms persist or worsen in 3 days the call the clinic. Plan of care discussed with patient who verbalized understanding. [email or web address] Not available 11/22/2021 14:19:28 Reason for Referral None Reported. Results Created Date Observation Date Name Description Value Unit Range Abnormal Flag Note LastModifiedBy Organization Detail LastModifiedTime 11/23/19 22 11/22/2021 rapid SARS CoV 2 Ag, QL, IA, upper respi rator y speci men SARS CoV Ag negati ve Not Available [address], [address], 11/22/2021 14:02:56 11/23/19 22 11/22/2021 rapid flu (A+B) Flu A negati ve Not Available [address], [address], 11/22/2021 14:02:41 11/23/19 22 11/22/2021 rapid flu (A+B) Flu B negati ve Not Available [address], [address], 11/22/2021 14:02:41 12/28/19 22 12/27/2021 HbA1c (hemo globi n A1c), blood HbA1c 6.7 Not Available [address], [address], 12/27/2021 14:32:34 03/28/19 23 03/29/2022 LIPID PANEL WITH REFLE X TO DIREC T LDL cholesterol, total 233 mg/dL <200 high Not Available [facility] [place] [facility] [facility] [address] [facility], [place], [address], 03/29/2022 06:30:17 03/28/19 23 03/29/2022 LIPID PANEL WITH REFLE X TO DIREC T LDL HDL cholesterol 48 mg/dL > or = 50 low Not Available [facility] [place] [facility] [address] [facility], [place], [address], 03/29/2022 06:30:17 03/28/19 23 03/29/2022 LIPID PANEL WITH REFLE X TO DIREC T LDL triglyceride s 220 mg/dL <150 high If a non-f astin g speci men was colle cted, consi norma repea t trigl yceri de testi ng on a fasti ng speci men if clini heriberto indic ated. Crow valle et al. J. of Clin. Lipid ol. 2015; 9:129 -169. Not Available [facility] [place] [facility] [address] [facility], [place], [address], 03/29/2022 06:30:17 03/28/1903/29/2022 LIPID PANEL WITH REFLE X TO DIREC T LDL LDL-choleste rol 148 mg/dL _(melody c) high Refer ence range : <100 Maria Guadalupe able range <100 mg/dL for prima ry preve ntion ; <70 mg/dL for patie nts with CHD or diabe tic patie nts with > or = 2 CHD risk facto rs. LDL-C is now calcu lated using the Joann n-Hop kins calcu latio n, which is a valid ated novel amao d provi joao zenia r accur acy than the Fried shelton equat ion in the estim ation of LDL-C . Joann NELSON et al. MARÍA. 2013; 310(1 9): 2061- 2068 (http ://ed ucati on.Qu estDi Meridian Systemss. com/f aq/FA Q164) Not Available [facility] [place] [facility] [address] [facility] [place], [address], 03/29/2022 06:30:17 03/28/19 23 03/29/2022 LIPID PANEL WITH REFLE X TO DIREC T LDL chol/HDLC ratio 4.9 (calc ) <5.0 normal Not Available [facility] [place] [facility] [address] [place], [address], 03/29/2022 06:30:17 03/28/1903/29/2022 LIPID PANEL WITH REFLE X TO DIREC T LDL non HDL cholesterol 185 mg/dL _(melody c) <130 high For patie nts with diabe erna plus 1 major ASCVD risk facto r, treat ing to a non-H DL-C goal of <100 mg/dL (LDL- C of <70 mg/dL ) is consi dered a thera peuti c optio n. Not Available [facility] [place] [facility] [address] [place], [address], 03/29/2022 06:30:17 03/28/1903/29/2022 COMPR EHENS WILMER METAB OLIC PANEL glucose 98 mg/dL 65-99 normal Fasti ng refer ence inter ivana Not Available [facility] [place] [facility] [address] [place], [address], 03/29/2022 06:30:17 03/28/19 23 03/29/2022 COMPR EHENS WILMER METAB OLIC PANEL urea nitrogen (BUN) 22 mg/dL 7-25 normal Not Available [facility] [place] [facility] [address] [place], [address], 03/29/2022 06:30:17 03/28/19 23 03/29/2022 COMPR EHENS WILMER METAB OLIC PANEL creatinine 1.60 mg/dL 0.50-1 .05 high Not Available [facility] [place] [facility] [address] [place], [address], 03/29/2022 06:30:17 03/28/1903/29/2022 COMPR EHENS WILMER METAB OLIC PANEL eGFR 37 mL/mi n/1.7 3m2 > or = 60 low The eGFR is based on the CKD-E PI 2020 equat ion. To calcu late the new eGFR from a previ ous Creat inine or Cysta tin C resul t, go to https ://nay wells.o mireille/demario baeza s/ kdoqi /gfr% 5Fcal culat or Not Available [facility] [place] [facility] [address] [facility] [place], [address], 03/29/2022 06:30:17 03/28/19 23 03/29/2022 COMPR EHENS WILMER METAB OLIC PANEL BUN/creatini ne ratio 14 (calc ) 6-22 normal Not Available [facility] [place] [facility] [address] [place], [address], 03/29/2022 06:30:17 03/28/19 23 03/29/2022 COMPR EHENS WILMER METAB OLIC PANEL sodium 139 mmol/ L 135-14 6 normal Not Available [facility] [place] [facility] [address] [facility] [place], [address], 03/29/2022 06:30:17 03/28/19 23 03/29/2022 COMPR EHENS WILMER METAB OLIC PANEL potassium 4.4 mmol/ L 3.5-5. 3 normal Not Available [facility] [place] [facility] [address] [place], [address], 03/29/2022 06:30:17 03/28/19 23 03/29/2022 COMPR EHENS WILMER METAB OLIC PANEL chloride 98 mmol/ L 98-110 normal Not Available [facility] [place] [facility] [address] [facility] [place], [address], 03/29/2022 06:30:17 03/28/19 23 03/29/2022 COMPR EHENS WILMER METAB OLIC PANEL carbon dioxide 27 mmol/ L 20-32 normal Not Available [facility] [place] [facility] [address] [facility] [place], [address], 03/29/2022 06:30:17 03/28/19 23 03/29/2022 COMPR EHENS WILMER METAB OLIC PANEL calcium 10.9 mg/dL 8.6-10 .4 high Not Available [facility] [place] [facility] [address] [facility] [place], [address], 03/29/2022 06:30:17 03/28/19 23 03/29/2022 COMPR EHENS WILMER METAB OLIC PANEL protein, total 8.4 g/dL 6.1-8. 1 high Not Available [facility] [place] [facility] [address] [facility] [place], [address], 03/29/2022 06:30:17 03/28/1903/29/2022 COMPR EHENS WILMER METAB OLIC PANEL albumin 4.8 g/dL 3.6-5. 1 normal Not Available [facility] [address] [facility] [place], [address], 03/29/2022 06:30:17 03/28/19 23 03/29/2022 COMPR EHENS WILMER METAB OLIC PANEL globulin 3.6 g/dL_ (calc ) 1.9-3. 7 normal Not Available [facility] [place] [facility] [address] [facility] [place], [address], 03/29/2022 06:30:17 03/28/19 23 03/29/2022 COMPR EHENS WILMER METAB OLIC PANEL albumin/glob ulin ratio 1.3 (calc ) 1.0-2. 5 normal Not Available [facility] [place] [facility] [address] [facility] [place], [address], 03/29/2022 06:30:17 03/28/1903/29/2022 COMPR EHENS WILMER METAB OLIC PANEL bilirubin, total 0.5 mg/dL 0.2-1. 2 normal Not Available [facility] [address] [facility] [place], [address], 03/29/2022 06:30:17 03/28/19 23 03/29/2022 COMPR EHENS WILMER METAB OLIC PANEL alkaline phosphatase 133 U/L 37-153 normal Not Available [facility] [employer] [facility] [address] [place], [address], 03/29/2022 06:30:17 03/28/19 23 03/29/2022 COMPR EHENS WILMER METAB OLIC PANEL AST 13 U/L 10-35 normal Not Available [facility] [address] [place], [address], 03/29/2022 06:30:17 03/28/19 23 03/29/2022 COMPR EHENS WILMER METAB OLIC PANEL ALT 8 U/L 6-29 normal Not Available [facility] [employer] [facility] [address] [place], [address], 03/29/2022 06:30:17 03/28/19 23 03/29/2022 CBC (INCL UDES DIFF/ PLT) white blood cell count 11.6 thous and/u L 3.8-10 .8 high Not Available [employer] [facility] [address] [place], [address], 03/29/2022 05:12:16 03/28/19 23 03/29/2022 CBC (INCL UDES DIFF/ PLT) red blood cell count 4.56 cande on/uL 3.80-5 .10 normal Not Available [employer] [facility] [address] [place], [address], 03/29/2022 05:12:16 03/28/19 23 03/29/2022 CBC (INCL UDES DIFF/ PLT) hemoglobin 13.4 g/dL 11.7-1 5.5 normal Not Available [employer] [facility] [address] [place], [address], 03/29/2022 05:12:16 03/28/19 23 03/29/2022 CBC (INCL UDES DIFF/ PLT) hematocrit 40.3 % 35.0-4 5.0 normal Not Available [facility] [place] [facility] [address] [place], [address], 03/29/2022 05:12:16 03/28/19 23 03/29/2022 CBC (INCL UDES DIFF/ PLT) MCV 88.4 fL 80.0-1 00.0 normal Not Available [facility] [place] [facility] [address] [place], [address], 03/29/2022 05:12:16 03/28/19 23 03/29/2022 CBC (INCL UDES DIFF/ PLT) MCH 29.4 pg 27.0-3 3.0 normal Not Available [facility] [place] [facility] [address] [place], [address], 03/29/2022 05:12:16 03/28/1903/29/2022 CBC (INCL UDES DIFF/ PLT) MCHC 33.3 g/dL 32.0-3 6.0 normal Not Available [facility] [place] [facility] [address] [place], [address], 03/29/2022 05:12:16 03/28/1903/29/2022 CBC (INCL UDES DIFF/ PLT) RDW 14.6 % 11.0-1 5.0 normal Not Available [facility] [place] [facility] [address] [place], [address], 03/29/2022 05:12:16 03/28/1903/29/2022 CBC (INCL UDES DIFF/ PLT) platelet count 528 thous and/u L 140-40 0 high Not Available [facility] [address] [place], [address], 03/29/2022 05:12:16 03/28/19 23 03/29/2022 CBC (INCL UDES DIFF/ PLT) MPV 9.6 fL 7.5-12 .5 normal Not Available [facility] [place] [facility] [address], [place], [address], 03/29/2022 05:12:16 03/28/19 23 03/29/2022 CBC (INCL UDES DIFF/ PLT) absolute neutrophils 7494 cells /uL 1500-7 800 normal Not Available [facility] [place] [facility] [address], [place], [address], 03/29/2022 05:12:16 03/28/19 23 03/29/2022 CBC (INCL UDES DIFF/ PLT) absolute lymphocytes 2691 cells /uL 850-39 00 normal Not Available [facility] [place] [facility] [address], [place], [address], 03/29/2022 05:12:16 03/28/1903/29/2022 CBC (INCL UDES DIFF/ PLT) absolute monocytes 905 cells /uL 200-95 0 normal Not Available [facility] [place] [facility] [address], [place], [address], 03/29/2022 05:12:16 03/28/1903/29/2022 CBC (INCL UDES DIFF/ PLT) absolute eosinophils 452 cells /uL 15-500 normal Not Available [facility] [place] [facility] [address], [place], [address], 03/29/2022 05:12:16 03/28/19 23 03/29/2022 CBC (INCL UDES DIFF/ PLT) absolute basophils 58 cells /uL 0-200 normal Not Available [facility] [place] [facility] [address], [place], [address], 03/29/2022 05:12:16 03/28/1903/29/2022 CBC (INCL UDES DIFF/ PLT) neutrophils 64.6 % normal Not Available [facility] [place] [facility] [address], [place], [address], 03/29/2022 05:12:16 03/28/19 23 03/29/2022 CBC (INCL UDES DIFF/ PLT) lymphocytes 23.2 % normal Not Available [facility] [place] [facility] [address] [place], [address], 03/29/2022 05:12:16 03/28/19 23 03/29/2022 CBC (INCL UDES DIFF/ PLT) monocytes 7.8 % normal Not Available [facility] [place] [facility] [address] [place], [address], 03/29/2022 05:12:16 03/28/1903/29/2022 CBC (INCL UDES DIFF/ PLT) eosinophils 3.9 % normal Not Available [facility] [place] [facility] [address] [place], [address], 03/29/2022 05:12:16 03/28/19 23 03/29/2022 CBC (INCL UDES DIFF/ PLT) basophils 0.5 % normal Not Available [facility] [place] [facility] [address] [place], [address], 03/29/2022 05:12:16 03/28/1903/29/2022 TSH W/REF BAY TO FT4 TSH w/reflex to FT4 2.59 mIU/L 0.40-4 .50 normal Not Available [facility] [place] [facility] [address] [place], [address], 03/29/2022 08:45:03 03/28/1903/29/2022 VITAM IN D,25- OH,TO MARGARET,I A vitamin D,25-oh,tota l,ia 132 NG/mL 30-100 high Vitam in D Statu s 25-OH Vitam in D: Defic iency : <20 ng/mL Insuf ficie ncy: 20 - 29 ng/mL Optim al: > or = 30 ng/mL For 25-OH Vitam in D testi ng on patie nts on D2-bae pplem entat ion and patie nts for whom quant itati on of D2 and D3 fract ions is requi red, the [facility] eD(TM ) 25-OH VIT D, (D2,D 3), LC/MS /MS is recom alhaji d: order code 82285 (antonietta ents >2yrs ). See Note 1 Note 1 For addit ional infor cruz ramires refer to http: //[facility] srinivas Patel stDia gnost ics.c om/fa q/FAQ 199 (This link is being provi ded for infor taco garcia/ educmitchell gonsalves purpo ses only. ) Not Available [facility] [place] [facility] [address] [place] [address], [place], [address], 03/29/2022 08:45:04 03/28/19 23 03/28/2022 micro album in/cr eatin ine, mass ratio , urine Microalbumin 150 Not Available [address], [address], 03/28/2022 09:33:47 03/28/19 23 03/28/2022 micro album in/cr eatin ine, mass ratio , urine Creatinine 200 Not Available [address], [address], 03/28/2022 09:33:47 03/28/19 23 03/28/2022 micro album in/cr eatin ine, mass ratio , urine Ratio 30-300 Not Available [address], [address], 03/28/2022 09:33:47 03/28/19 23 03/28/2022 HbA1c (hemo globi n A1c), blood HbA1c 6.0 Not Available [address], [address], 03/28/2022 09:33:46 03/27/19 23 05/16/2020 MAMMO , scree darryn, bilat eral No observ ation record ed. [email or web address] Not Available 2022 11:27:42 03/29/19 23 05/16/2020 MAMMO , scree darryn, bilat eral, w/ CAD No observ ation record ed. [email or web address] Not Available 2022 13:40:20 Result Notes None recorded. Problems Name Problem SNOMED Code Status Onset Date Resolution Date Notes Provider Name and Address Organization Details Recorded Time Iron deficien cy anemia secondar y to inadequa te dietary iron intake 790786454 Completed 201703/14/2017 Problem Code: D50.8; Problem Code Type: ICD-10; Not Available [facility] 2 21:50:04 Acute posthemo rrhagic anemia 905100594 Completed 201604/28/2016 Problem Code: D62; Problem Code Type: ICD-10; Not Available [facility] 2 21:50:04 Type 2 diabetes mellitus without complica tion 095320027 Active 2020 Not Available [facility] 2 21:50:04 Vitamin D deficien cy 99265986 Active 2018 Problem Code: E55.9; Problem Code Type: ICD-10; Not Available [facility] 2 21:50:04 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 2 14:48:07 Migraine without aura 44832794 Completed 201601/23/2017 Problem Code: G43.009; Problem Code Type: ICD-10; Nia Pimentel APRN [address] [place] [address], [address] , [facility] [employer] 2 14:48:07 Vascular headache 868247349 Completed 201609/18/2016 Problem Code: G44.1; Problem Code Type: ICD-10; Not Available [facility] 2 21:50:05 Migraine with aura 6452387 Active 2015 Problem Code: G43.109; Problem Code Type: ICD-10; Not Available [facility] 2 21:50:05 Migraine with aura 2662101 Completed 201601/23/2017 Problem Code: G43.109; Problem Code Type: ICD-10; Not Available [facility] 2 21:50:05 Impacted cerumen in right ear [id number] 53153 Completed 201707/12/2017 Problem Code: H61.21; Problem Code Type: ICD-10; Not Available [facility] 2 21:50:05 Hyperten sive disorder 16796848 Completed 201703/14/2017 Problem Code: I10; Problem Code Type: ICD-10; Not Available [facility] 2 21:50:05 Thrombos is of the poplitea l vein 004384983 Completed 201609/05/2018 Problem Code: I82.431; Problem Code Type: ICD-10; Not Available [facility] 2 21:50:06 Venous embolism 711295047 Completed 201609/14/2019 Not Available [facility] 2 21:50:06 Thrombos is of iliac vein 831898519 Completed 201609/05/2018 Not Available [facility] 2 21:50:06 Acute maxillar y sinusiti s 86335799 Completed 201909/14/2019 Problem Code: J01.01; Problem Code Type: ICD-10; Nia Pimentel APRN [address] [facility], [place], [address] , [employer] 2 14:47:10 Acute maxillar y sinusiti s 18277186 Completed 201708/22/2017 Problem Code: J01.01; Problem Code Type: ICD-10; Nia Pimentel APRN [address] [facility], [place], [address] , [employer] 2 14:47:10 Acute maxillar y sinusiti s 05155784 Completed 201705/27/2017 Problem Code: J01.01; Problem Code Type: ICD-10; Nia Pimentel APRN [address] [facility], [place], [address] , [employer] 2 14:47:10 Acute maxillar y sinusiti s 48154625 Completed 201712/13/2017 Problem Code: J01.01; Problem Code Type: ICD-10; Niarose marie Pimentel APRN [address] [facility], [place], [address] , [employer] 2 14:47:10 Acute sinusiti s 29879358 Completed 201703/18/2017 Problem Code: J01.90; Problem Code Type: ICD-10; Not Available [facility] 2 21:50:07 Acute maxillar y sinusiti s 43915162 Completed 201902/14/2020 Problem Code: J01.01; Problem Code Type: ICD-10; Niarose marie Pimentel APRN [address] [facility], [place], [address] , [employer] 2 14:47:10 Acute sinusiti s 24445608 Completed 201705/27/2017 Problem Code: J01.90; Problem Code Type: ICD-10; Not Available [facility] 2 21:50:07 Recurren t acute sinusiti s 229301436 Completed 201602/06/2017 Problem Code: J01.91; Problem Code Type: ICD-10; Not Available [facility] 2 21:50:07 Acute sinusiti s 47318231 Completed 201601/14/2017 Problem Code: J01.90; Problem Code Type: ICD-10; Not Available [facility] 2 21:50:07 Acute sinusiti s 01880709 Completed 201602/06/2017 Problem Code: J01.90; Problem Code Type: ICD-10; Not Available [facility] 2 21:50:07 Acute pharyngi tis 508192458 Completed 201607/17/2016 Problem Code: J02.8; Problem Code Type: ICD-10; Not Available [facility] 2 21:50:08 Acute pharyngi tis 233121079 Completed 201809/14/2019 Not Available [facility] 2 21:50:08 Disorder of upper respirat ory system 818977551 Completed 201702/20/2018 Problem Code: J06.9; Problem Code Type: ICD-10; Nia Pimentel APRN [address] [place] [address], [address] , [employer] 2 14:47:58 Bronchop neumonia 859422287 Completed 201601/23/2017 Problem Code: J18.0; Problem Code Type: ICD-10; Nia Pimentel APRN [address] [place], [address] , [employer] 2 14:47:31 Bronchop neumonia 386722810 Completed 201704/07/2018 Problem Code: J18.0; Problem Code Type: ICD-10; Nia Pimentel APRN [address] [place], [address] , [employer] 2 14:47:31 Acute bronchit is 37830460 Completed 201606/16/2016 Problem Code: J20.8; Problem Code Type: ICD-10; Not Available [facility] 2 21:50:09 Bronchop neumonia 695930632 Completed 201604/28/2016 Problem Code: J18.0; Problem Code Type: ICD-10; Nia Pimentel APRN [address] [place], [address] , [employer] 2 14:47:31 Chronic obstruct wilmer pulmonar y disease with acute lower respirat ory infectio n 376197483 Completed 201809/14/2019 Problem Code: J44.0; Problem Code Type: ICD-10; Not Available [facility] 2 21:50:09 Chronic obstruct wilmer pulmonar y disease with acute lower respirat ory infectio n 786150855 Completed 201708/22/2017 Problem Code: J44.0; Problem Code Type: ICD-10; Not Available [facility] 2 21:50:10 Acute exacerba tion of chronic obstruct wilmer pulmonar y disease 050637070 Completed 201509/05/2018 Problem Code: J44.1; Problem Code Type: ICD-10; Nia Pimentel APRN [address] [place], [address] , [employer] 2 14:47:25 Chronic obstruct wilmer pulmonar y disease 37185098 Active 2019 Problem Code: J44.9; Problem Code Type: ICD-10; Not Available [facility] 2 21:50:10 Persiste nt asthma 77552010061 03 Completed 201709/14/2019 Problem Code: J45.41; Problem Code Type: ICD-10; Not Available [facility] 2 21:50:10 Gastro-e sophagea l reflux disease with esophagi tis 473581451 Active 2018 Problem Code: K21.0; Problem Code Type: ICD-10; Not Available [facility] 2 21:50:11 Persiste nt asthma 87277446562 03 Completed 201608/22/2017 Problem Code: J45.41; Problem Code Type: ICD-10; Not Available [facility] 2 21:50:11 Cellulit is of right lower limb [id number] 987376 Completed 202006/14/2020 Problem Code: L03.115; Problem Code Type: ICD-10; Not Available [facility] 2 21:50:11 Vesicula r eczema 091165376 Active 2019 Problem Code: L30.1; Problem Code Type: ICD-10; Not Available [facility] 2 21:50:11 Chronic gouty arthriti s 88619591 Completed 201602/14/2020 Problem Code: M1A.0720 ; Problem Code Type: ICD-10; Not Available [facility] [facility] 21:50:12 Pain of joint of ankle [id number] Completed 201701/22/2018 Not Available [facility] 2 21:50:12 Pain in right lower limb 030868846 Completed 201601/23/2017 Nia Pimentel APRN [address] [place] [address], [address] , [employer] 14:48:31 Low back pain [id number] Completed 201501/23/2017 Problem Code: M54.5; Problem Code Type: ICD-10; Not Available [facility] 2 21:50:13 Pain in right lower limb [id number] Completed 201902/14/2020 Nia Pimentel APRN [address] [place], [address] , [employer] 2 14:48:31 Pain of right lower leg [id number] 9108 Completed 202006/14/2020 Problem Code: M79.661; Problem Code Type: ICD-10; Not Available [facility] 2 21:50:14 Urinary tract infectio us disease 58916804 Completed 201809/14/2019 Problem Code: N39.0; Problem Code Type: ICD-10; Nia Pimentel, [employer] [address] [place], [address] , [facility] [employer], [facility]. 14:48:54 Cough [id number] Completed 201612/14/2016 Problem Code: R05; Problem Code Type: ICD-10; Not Available [facility] 2 21:50:15 Migraine with aura 5987712 Completed 201601/23/2017 Problem Code: G43.109; Problem Code Type: ICD-10; Not Available [facility] 2 21:50:15 Eruption [id number] Completed 201809/05/2018 Problem Code: R21; Problem Code Type: ICD-10; Not Available [facility] 2 21:50:16 Meningea l irritati on [id number] Completed 201701/03/2018 Problem Code: R29.1; Problem Code Type: ICD-10; Not Available [facility] 2 21:50:16 Tod hematuri a [id number] Completed 202006/14/2020 Problem Code: R31.0; Problem Code Type: ICD-10; Not Available [facility] 2 21:50:16 Altered mental status 238566366 Completed 202006/14/2020 Not Available [facility] 2 21:50:16 Marion lesion of lung 527808952 Active 2020 Problem Code: R91.1; Problem Code Type: ICD-10; Not Available [facility] 2 21:50:18 Acute suppurat wilmer otitis media 949755466 Completed 201708/22/2017 Not Available [facility] 2 21:50:19 Fall on same level from slipping , tripping or stumblin g Completed 201906/14/2020 VSC24Sol es: 'W01.10X A'; Not Available [facility] 2 21:50:20 General examinat ion of patient Active 2019 Not Available [facility] 2 21:50:21 Screenin g mammogra phy Completed 202006/14/2020 Problem Code: Z12.31; Problem Code Type: ICD-10; MARKO collins, [employer] 3 09:21:20 Screenin g mammogra phy Completed 201902/14/2020 Problem Code: Z12.31; Problem Code Type: ICD-10; MARKO collins, [employer] 3 09:21:20 Acute sinusiti s 96588365 Completed 201606/01/2016 Problem Code: J01.90; Problem Code Type: ICD-10; Not Available [facility] 2 21:50:24 Acute sinusiti s 12861146 Completed 201608/31/2016 Problem Code: J01.90; Problem Code Type: ICD-10; Not Available [facility] 2 21:50:24 Recurren t acute sinusiti s 173020830 Completed 201703/18/2017 Problem Code: J01.91; Problem Code Type: ICD-10; Not Available [facility] 2 21:50:25 Influenz a vaccine needed [id number] 06 Completed 201902/14/2020 Problem Code: Z23; Problem Code Type: ICD-10; MARKO ANAYAPAM collins, [employer] 3 09:20:46 Bronchop neumonia 643532524 Completed 201604/23/2016 Problem Code: J18.0; Problem Code Type: ICD-10; Nia Pimentel APRN [address] [place], [address] , [employer] 2 14:47:31 Bronchop neumonia 076604942 Completed 201707/22/2017 Problem Code: J18.0; Problem Code Type: ICD-10; Nia Pimentel APRN [address] [place], [address] , [employer] 14:47:31 Allergic rhinitis caused by pollen 30210724 Active 2020 Problem Code: J30.1; Problem Code Type: ICD-10; Not Available [facility] 2 21:50:28 Body mass index 30+ - obesity 341267966 Active 2018 Problem Code: Z68.33; Problem Code Type: ICD-10; Not Available [facility] 2 21:50:29 Body mass index 30+ - obesity 718520887 Completed 201709/05/2018 Problem Code: Z68.34; Problem Code Type: ICD-10; Not Available [facility] 21:50:30 Chronic gout without tophus 609650869 Completed 201609/05/2018 Problem Code: M1A.9XX0 ; Problem Code Type: ICD-10; Not Available [facility] 2 21:50:30 History of thromboe mbolism 760577797 Active 2020 Problem Code: Z86.718; Problem Code Type: ICD-10; Not Available [facility] 2 21:50:30 Pain in left foot [id number] 9107 Completed 201601/23/2017 Problem Code: M79.672; Problem Code Type: ICD-10; Not Available [facility] 2 21:50:32 Urinary tract infectio us disease 91627680 Completed 201909/14/2019 Problem Code: N39.0; Problem Code Type: ICD-10; Nia Pimentel APRN [address] [place] [address], [address] , [employer] 14:48:54 Benign essentia l hyperten jammie 0974022 Completed 201703/14/2017 Problem Code: 401.1; Problem Code Type: ICD-9; Not Available [facility] 2 21:50:35 Acute upper respirat ory infectio n of multiple sites Completed 201702/20/2018 Problem Code: 465.8; Problem Code Type: ICD-9; Not Available [facility] 2 21:50:35 Extrinsi c asthma with asthma attack Completed 201608/22/2017 Problem Code: 493.02; Problem Code Type: ICD-9; Not Available [facility] 2 21:50:36 Acute sinusiti s 83936959 Completed 201708/22/2017 Problem Code: 461.9; Problem Code Type: ICD-9; Not Available [facility] 2 21:50:37 Left lower quadrant pain 083987643 Completed 201609/18/2016 Problem Code: R10.32; Problem Code Type: ICD-10; Not Available [facility] 2 21:50:38 Pneumoco ccal pneumoni a 454579972 Completed 201604/28/2016 Problem Code: 481; Problem Code Type: ICD-9; Not Available [facility] 2 21:50:38 Acute sinusiti s 93963020 Completed 201712/13/2017 Problem Code: 461.9; Problem Code Type: ICD-9; Not Available [facility] 2 21:50:39 Acute exacerba tion of chronic bronchit is 211745212 Completed 201708/22/2017 Not Available [facility] 2 21:50:40 Allergy to drug 962732364 Completed 201701/08/2018 Problem Code: 995.27; Problem Code Type: ICD-9; Not Available [facility] 2 21:50:41 Pain in limb 63848102 Completed 201601/23/2017 Problem Code: 729.5; Problem Code Type: ICD-9; Nia Pimentel APRN [address] [place], [address] , [facility] [employer] 2 14:48:28 Contusio n of abdomina l wall Completed 201604/23/2016 Problem Code: 922.2; Problem Code Type: ICD-9; Not Available [facility] 2 21:50:42 Pain in limb 54674149 Completed 201601/23/2017 Problem Code: 729.5; Problem Code Type: ICD-9; Nia Pimentel APRN [address] [place], [address] , [facility] [employer] 14:48:28 Headache 90393010 Completed 201609/18/2016 Problem Code: 784.0; Problem Code Type: ICD-9; Not Available [facility] 21:50:43 Screenin g for malignan t neoplasm of breast Completed 201705/03/2017 Problem Code: V76.10; Problem Code Type: ICD-9; Not Available [facility] 21:50:45 Breast neoplasm screenin g status 273583120 Completed 201705/03/2017 Problem Code: Z12.39; Problem Code Type: ICD-10; Not Available [facility] 21:50:45 Transien t insomnia 976133685 Completed 201609/18/2016 Problem Code: 307.41; Problem Code Type: ICD-9; Not Available [facility] 21:50:46 Impacted cerumen 23483576 Completed 201707/12/2017 Problem Code: 380.4; Problem Code Type: ICD-9; Not Available [facility] 21:50:46 Acute suppurat wilmer otitis media without spontane ous rupture of ear drum 69890946 Completed 201708/22/2017 Problem Code: 382.00; Problem Code Type: ICD-9; Not Available [facility] 21:50:47 Pneumoni a 920056776 Completed 201604/23/2016 Problem Code: 486; Problem Code Type: ICD-9; Not Available [facility] 21:50:48 Joint pain in ankle and foot Completed 201701/22/2018 Problem Code: 719.47; Problem Code Type: ICD-9; Not Available [facility] 21:50:49 Notes:*Problem Name: Decompe nsated chronic obstructive pulmonary disease (COPD) *Problem Status: Chronic *Comments: *Problem Code: 491.21 *Problem Code Type: ICD-9 *Note Date: 01/27/2016 *Problem Name: Contusion of abdominal wall, initial encounter *Problem Status: Acute *Comments: *Problem Code: S30.1XXA *Problem Code Type: ICD-10 *Note Date: 02/23/2016 *Problem Name: Contusion of left hand, initial encounter *Problem Status: Chronic *Comments: *Problem Code: S60.222A *Problem Code Type: ICD-10 *Note Date: 04/29/2020 *Problem Name: Adverse effect of local antifungal, anti-infective and anti-inflammatory drugs, subsequent encounter *Problem Status: Chronic *Comments: *Problem Code: T49.0X5D *Problem Code Type: ICD-10 *Note Date: 09/05/2018 *Problem Name: Adverse effect of other drugs, medicaments and biological substances, subsequent encounter *Problem Status: Chronic *Comments: *Problem Code: T50.995D *Problem Code Type: ICD-10 *Note Date: 08/22/2017 Problem Notes None recorded. Procedures Surgical History Date Name Laterality Status Provider Name and Address Organization Details Recorded Time 12/28/19 22 Cerumen Removal completed Nia Pimentel, JOO [address] [place] [address], [address] [employer] 12/27/2021 15:08:59 05/17/19 21 Most Recent Mammogram completed [employer] 03/28/2022 17:56:09 06/03/19 19 colonoscopy completed [employer] 03/28/2022 17:56:31 11/30/19 18 cataract surgery completed Not Available [facility] 10/17/2021 22:56:06 arthroplasty of right shoulder completed [employer] 12/27/2021 14:16:36 arthroplasty of right knee completed [employer] 12/27/2021 14:16:47 closed reduction of fracture of foot completed [employer] 12/27/2021 14:17:17 Breast reduction completed [employer] 12/27/2021 14:17:23 Hysterectomy completed [employer] 12/27/2021 14:17:40 Appendectomy completed [employer] 12/27/2021 14:17:45 reconstruction of female urinary bladder neck completed [employer] 12/27/2021 14:17:53 tonsilectomy/adeno ids completed [employer] 12/27/2021 14:18:18 operation on accessory sinus completed [employer] 12/27/2021 14:19:48 Imaging Results None recorded. Procedure Notes None recorded. Medical Equipment None Reported. Allergies Allergen ID Allergen Name Allergen Category Reaction Reaction Severity Criticality Documentation Date Start Date Code Code System Note Provider Name and Address Organization Details Recorded Time 27063 Medicinal product containin g cephalosp vlad and acting as antibacte rial agent (product) medicatio n Not available Not available Not available 10/17/2021 59167 9009 SNOMED Brittny Garcia [employer], [employer] 3 11:21:19 21386 Substance with sulfonami de structure and antibacte rial mechanism of action (substanc e) medicatio n Not available Not available Not available 10/17/2021 74279 8003 SNOMED Brittny Garcia null, [employer] 3 11:21:32 93020 Tetanus Toxoid medicatio n Not available Not available Not available 10/17/2021 83301 UNK Brittny Garcia null, [employer] 3 11:21:27 78178 Cipro medicatio n Not available Not available Not available 10/17/202157817 3 RxNorm Not Available [facility] 2 22:55:07 66262 guaifenes in / phenyleph rine medicatio n Not available Not available Not available 10/17/2021 47724 7 RxNorm Brittny Garcia null, [employer] 3 11:21:21 22542 Depakote medicatio n Not available Not available Not available 10/17/2021 04212 9 RxNorm Not Available [facility] 2 22:55:08 71300 Rocephin medicatio n rash moderate Not available 10/17/2021 9449 RxNorm Brittnynatalee collins [employer] 3 11:21:24 96195 Toradol medicatio n Not available Not available Not available 10/17/2021 75075 RxNorm Not Available [facility] 2 22:55:10 Medications Name Sig Start Date Stop Date Status Note LastModified by Organization Details LastModified Time cyclobenzap rine 10 mg tablet TAKE 1 TABLET EVERY 8 HOURS NEEDED 12/27 completed Not Available Not Available Not Available butorphanol 10 mg/mL nasal spray SPRAY 1 TIME IN 1 NOSTRIL FOR MIGRAINE. MAY SPRAY 1 TIME IN THE OTHER NOSTRIL IN 6 HOURS IF NEEDED. active Not Available Not Available No t Available amoxicillin 500 mg capsule take 1 capsule (500 mg) by oral route every 12 hours for 10 days 11/14 completed Not Available Not Available Not Available promethazin e-DM 6.25 mg-15 mg/5 mL oral syrup Take 1 teaspoonf ul by mouth every 6 hours as needed. 06/11 completed Not Available Not Available Not Available prednisone 10 mg tablet TAKE 6 TABLETS TODAY, TAKE 5 TABLETS ON 12/06, TAKE 4 TABLETS ON 12/07, TAKE 3 TABLETS ON 12/08, TAKE 2 TABLETS ON 12/09, AND TAKE 1 TABLET ON 12/10 completed Not Available Not Available Not Available Protonix 40 mg tablet,marylou yed release Take 1 tablet(s) by mouth daily 08/13 completed Not Available Not Available Not Available gabapentin 600 mg tablet TAKE 1 TABLET 3 TIMES EACH DAY 12/27 completed Not Available Not Available Not Available doxycycline hyclate 100 mg capsule TAKE 1 CAPSULE EVERY 12 HOURS FOR 10 DAYS 12/27 completed Not Available Not Available Not Available ipratropium 0.5 mg-albutero l 3 mg (2.5 mg base)/3 mL nebulizatio n soln INHALE CONTENTS OF 1 VIAL USING NEBULIZER EVERY 6 HOURS NEEDED. active Not Available Not Available No t Available clindamycin HCl 300 mg capsule TAKE 1 CAPSULE 3 TIMES EACH DAY FOR 7 DAYS 12/27 completed Not Available Not Available Not Available Carafate 1 gram tablet take one tablet before meals and at HS 08/13 completed Not Available Not Available Not Available azithromyci n 250 mg tablet take 2 tablets (500 mg) by oral route once daily for 1 day then 1 tablet (250 mg) by oral route once daily for 4 days 03/28 completed Not Available Not Available Not Available tizanidine 4 mg tablet TAKE 1 TABLET 2 TIMES EACH DAY active Not Available Not Available No t Available fluconazole 150 mg tablet TAKE 1 TABLET ONCE 12/27 completed Not Available Not Available Not Available benzonatate 200 mg capsule TAKE 1 CAPSULE 3 TIMES EACH DAY 12/27 completed Not Available Not Available Not Available hydrocodone 5 mg-acetamin ophen 325 mg tablet TAKE 1 TABLET 2 TIMES EACH DAY active Not Available Not Available No t Available Claritin 10 mg tablet Take 1 tablet(s) by mouth daily 08/03 completed Not Available Not Available Not Available ondansetron HCl 8 mg tablet TAKE 1 TABLET EVERY 8 HOURS NEEDED FOR NAUSEA AND VOMITING active Not Available Not Available No t Available fluconazole 200 mg tablet take 1 tablet (200 mg) by oral route once daily today, in 3 days, and then again at end of antibioti c course 12/23 completed Not Available Not Available Not Available Nicorette 2 mg gum Chew 1 piece of gum every 1-2 hours prn X 6 weeks. 06/18 completed Not Available Not Available Not Available promethazin e 12.5 mg tablet take 1 tablet (12.5 mg) by oral route every 4-6 hours as needed for N/V 02/02 completed Not Available Not Available Not Available Medrol (Don) 4 mg tablets in a dose pack Use as package directs 04/18 completed Not Available Not Available Not Available prednisone 20 mg tablet take 3 po x 5 days active Not Available Not Available No t Available clonazepam 0.5 mg tablet one tablet q day 05/18 completed Not Available Not Available Not Available prednisone 5 mg tablet 7pills po today and decrease by one q day 05/18 completed Not Available Not Available Not Available clobetasol 0.05 % topical cream apply a thin layer to the affected area(s) by topical route 2 times per day 12/27 completed Not Available Not Available Not Available sumatriptan 50 mg tablet take 1 tablet (50 mg) by oral route after onset of migraine; may repeat after 2 hours if headache returns, not to exceed 200mg in 24hrs 12/27 completed Not Available Not Available Not Available acetaminoph en 300 mg-codeine 30 mg tablet TAKE 1 TABLET EVERY 6 HOURS NEEDED FOR PAIN 12/27 completed Not Available Not Available Not Available dextrometho rphan-guaif enesin 10 mg-100 mg/5 mL oral syrup Take 1 teaspoon by mouth q4h prn for cough 08/17 completed Not Available Not Available Not Available hydrocodone 10 mg-acetamin ophen 325 mg tablet TAKE 1 TABLET 2 TIMES EACH DAY NEEDED FOR PAIN 12/27 completed Not Available Not Available Not Available Reglan 10 mg tablet 1 tablet 4 times a day 08/03 completed Not Available Not Available Not Available doxycycline monohydrate 100 mg tablet Take 1 tablet(s) by mouth bid 05/03 completed Not Available Not Available Not Available tramadol 50 mg tablet TAKE 1 TABLET EVERY 6 HOURS NEEDED 12/27 completed Not Available Not Available Not Available amitriptyli ne 50 mg tablet Take 2 at bedtime. 09/28 completed Not Available Not Available Not Available pentoxifyll ine ER 400 mg tablet,exte nded release TAKE 1 TABLET 3 TIMES EACH DAY. 12/27 completed Not Available Not Available Not Available Depo-Medrol 80 mg/mL suspension for injection Take 80 mg by injection route. 12/27 completed Not Available Not Available Not Available Zofran 4 mg tablet Give 1 tablet every 6 hrs as needed for nausea and/or vomiting 03/25 completed Not Available Not Available Not Available oxycodone-a cetaminophe n 5 mg-325 mg tablet TAKE 1 TABLET 3 TIMES EACH DAY NEEDED FOR MODERATE PAIN 2021 active Not Available Not Available Not Avai ivanna Devon G[employer] 100 mg capsule take 1 pill po up to TID as needed for cough 04/07 completed Not Available Not Available Not Available gabapentin 800 mg tablet TAKE 1 TABLET 3 TIMES EACH DAY 12/27 completed Not Available Not Available Not Available rizatriptan 10 mg disintegrat ing tablet TAKE 1 TABLET AT START OF HEADACHE. MAY TAKE ANOTHER TABLET IN 2 HOURS IF NEEDED. DO NOT TAKE MORE THAN 2 TABLETS IN 24 HOURS. 03/28 completed Not Available Not Available Not Available doxycycline monohydrate 100 mg capsule take 1 capsule (100 mg) by oral route 2 times per day for 10 days 06/26 completed Not Available Not Available Not Available hydrocodone 7.5 mg-acetamin ophen 325 mg tablet TAKE 1 TABLET 2 TIMES EACH DAY NEEDED 12/27 completed Not Available Not Available Not Available ranitidine 150 mg tablet one po bid 08/13 completed Not Available Not Available Not Available lidocaine 5 % topical patch APPLY 1 PATCH ONCE A DAY. REMOVE AFTER 12 HOURS. 03/28 completed Not Available Not Available Not Available promethazin e 25 mg tablet Take 1 every 6 hours as needed for nausea/vo miting. 01/08 completed Not Available Not Available Not Available gabapentin 300 mg capsule TAKE 2 CAPSULES 3 TIMES EACH DAY active Not Available Not Available No t Available montelukast 10 mg tablet TAKE 1 TABLET 1 TIME EACH DAY IN THE EVENING active Not Available Not Available No t Available pravastatin 20 mg tablet Take 1 tablet(s) by mouth at bedtime 08/13 completed Not Available Not Available Not Available Vistaril 25 mg capsule one pill TID PRN itching 07/02 completed Not Available Not Available Not Available furosemide 20 mg tablet TAKE 1 TABLET 1 TIME EACH DAY NEEDED FOR LEG SWELLING 03/28 completed Not Available Not Available Not Available Coumadin 5 mg tablet take 1 tablet po x2days then on third day take 1/2 tablet and keep alternati ng 04/16 completed Not Available Not Available Not Available albuterol 90 mcg/actuati on aerosol inhaler Inhale 2 puff(s) by mouth q 4 to 6 hr 08/31 completed Not Available Not Available Not Available ergocalcife rol (vitamin D2) 1,250 mcg (50,000 unit) capsule active Not Available Not Available Not Available levofloxaci n 500 mg tablet TAKE 1 TABLET EVERY 24 HOURS FOR 10 DAYS 12/27 completed Not Available Not Available Not Available oxycodone-a cetaminophe n 7.5 mg-325 mg tablet TAKE 1 TABLET EVERY 4 HOURS NEEDED FOR SEVERE PAIN 12/27 completed Not Available Not Available Not Available colchicine 0.6 mg tablet Take 1 tablet by mouth at onset of attack, then 1 tab every 1 to 2 hrs until pain is relieved or GI upset occurs. Max 3 tabs in 24 hours. 08/19 completed Not Available Not Available Not Available cefdinir 300 mg capsule Take 1 capsule(s ) by mouth q12h for 10 days 08/22 completed Not Available Not Available Not Available fluticasone propionate 50 mcg/actuati on nasal spray,suspe nsion 1 spray each nostril twice daily 03/28 completed Not Available Not Available Not Available nortriptyli ne 50 mg capsule TAKE 2 OR 3 CAPSULES 1 TIME EACH DAY AT BEDTIME 12/27 completed Not Available Not Available Not Available amoxicillin 875 mg-potassiu m clavulanate 125 mg tablet Take 1 tablet(s) by mouth q12h for 10 days active Not Available Not Available No t Available Ventolin HFA 90 mcg/actuati on aerosol inhaler INHALE 1 OR 2 PUFFS EVERY 4 HOURS NEEDED active Not Available Not Available No t Available azithromyci n 500 mg tablet take 1 tablet (500 mg) by oral route once daily 08/30 completed Not Available Not Available Not Available bupropion HCl XL 150 mg 24 hr tablet, extended release Take 1 tablet(s) by mouth daily 01/23 completed Not Available Not Available Not Available duloxetine 60 mg capsule,del ayed release TAKE 1 CAPSULE 2 TIMES EACH DAY active Not Available Not Available No t Available tizanidine 4 mg capsule 1 po tid 11/15 completed Not Available Not Available Not Available cyclobenzap rine 7.5 mg tablet take 1 tablet (7.5 mg) by oral route 3 times per day prn 08/03 completed Not Available Not Available Not Available Symbicort 80 mcg-4.5 mcg/actuati on HFA aerosol inhaler INHALE 2 PUFFS 2 TIMES EACH DAY 12/27 completed Not Available Not Available Not Available budesonide- formoterol HFA 160 mcg-4.5 mcg/actuati on aerosol inhaler inhale 2 puffs by inhalatio n route 2 times per day in the morning andevenin g 12/27 completed Not Available Not Available Not Available diclofenac 1 % topical gel APPLY 2-4 GRAMS 4 TIMES EACH DAY. DO NOT EXCEED 32 GRAMS IN 24 HOURS. 03/28 completed Not Available Not Available Not Available Xarelto 15 mg tablet 1 tablet BID for 21 days 04/17 completed Not Available Not Available Not Available Xarelto 20 mg tablet TAKE 1 TABLET 1 TIME EACH DAY active Not Available Not Available No t Available Linzess 145 mcg capsule TAKE 1 CAPSULE 1 TIME EACH DAY, ON AN EMPTY STOMACH, 30 MINUTES BEFORE THE FIRST MEAL OF THE DAY. 12/27 completed Not Available Not Available Not Available Linzess 72 mcg capsule take 1 capsule (72 mcg) at least 30 minutes before 1st meal of the day 09/13 completed Not Available Not Available Not Available Ajovy Syringe 225 mg/1.5 mL subcutaneou s Inject 225 mg subcutane ously q month 08/13 completed Not Available Not Available Not Available Mote[employer]ity 2 mg tablet TAKE 1 TABLET 1 TIME EACH DAY DIRECTED 03/28 completed Not Available Not Available Not Available Aimovig Autoinjecto r 140 mg/mL subcutaneou s auto-inject or INJECT THE CONTENTS OF 1 SYRINGE 1 TIME EACH MONTH 03/28 completed Not Available Not Available Not Available Ubrelvy 100 mg tablet TAKE 1 TABLET AT START OF HEADACHE. MAY TAKE ANOTHER TABLET IN 2 HOURS IF NEEDED. DO NOT TAKE MORE THAN 2 TABLETS IN 24 HOURS. active Not Available Not Available No t Available Vitals Date Recorded Body height Body mass index (BMI) Body weight Body temperature Heart rate Oxygen saturation Oxygen saturation in Arterial blood by Pulse oximetry Systolic blood pressure Diastolic blood pressure Provider Name and Address Organization Details Last Updated DateTime 3 177.8 cm 26 kg/m2 45093.6 6 g 97.6 [degF] 87 /min 95 % 95 % 79 mm[Hg] 57 mm[Hg] MARKO HÉCTORPAM [employer] 3 09:13:41 Date Recorded Body weight Body mass index (BMI) Body height Heart rate Oxygen saturation Oxygen saturation in Arterial blood by Pulse oximetry Body temperature Provider Name and Address Organization Details Last Updated DateTime 2 65605.6 2 g 29.7 kg/m2 177.8 cm 64 /min 98 % 98 % 97.9 [degF] Felecia Lagunasford [employer] 2 13:40:29 Date Recorded Body height Body mass index (BMI) Body weight Heart rate Oxygen saturation Oxygen saturation in Arterial blood by Pulse oximetry Systolic blood pressure Diastolic blood pressure Systolic blood pressure Diastolic blood pressure Provider Name and Address Organization Details Last Updated DateTime 2 177.8 cm 28.4 kg/m2 82419.2 9 g 79 /min 94 % 94 % 141 mm[Hg] 92 mm[Hg] 146 mm[Hg] 88 mm[Hg] MITCHEL ORTIZ [employer]. 2 14:53:32 Social History Question Answer Notes LastModified by Organizat ion Details LastModified Time Tobacco Smoking Status Former Smoker MITCHEL ORTIZ [facility], [employer]. 12/27/2021 14:13:22 Do You Have An Advance Directive? No [email or web address] Information not available 12/27/2021 Is Your Home Air Conditioned? Yes [email or web address] Information not available 12/27/2021 Are You Blind Or Do You Have Difficulty Seeing? No [email or web address] Information not available 12/27/2021 What Is Your Level Of Caffeine Consumption? Occasional [email or web address] Information not available 12/27/2021 Are You A Caregiver? Yes [email or web address] Information not available 12/27/2021 Have You Been To An Area Known To Be High Risk For COVID-19? No [email or web address] Information not available 12/27/2021 Are You Deaf Or Do You Have Serious Difficulty Hearing? No Information not available 12/27/2021 Have There Been Any Changes To Your Family Or Social Situation? No [email or web address] Information not available 12/27/2021 When Did You Quit Smoking? 1-5yearssincelastci mihaela [id number] Information not available 12/27/2021 Which Of Your Hands Is Dominant? Right [email or web address] Information not available 12/27/2021 Where Do You Live? [place] [email or web address] Information not available 12/27/2021 Do You Have A Medical Power Of Recruitment Consultant? No [email or web address] Information not available 12/27/2021 What Is Your Current Pack Years? 10-19packyears [email or web address] Information not available 12/27/2021 Do You Have Any Pets? Yes [email or web address] Information not available 12/27/2021 What Is Your Relationship Status? [email or web address] Information not available 12/27/2021 Do You Use Your Seat Belt Or Car Seat Routinely? Yes [email or web address] Information not available 12/27/2021 Do You Have Smoke And Carbon Monoxide Detectors In Your Home? Yes [email or web address] Information not available 12/27/2021 At What Age Did You Start Smoking Tobacco? 18 [email or web address] Information not available 12/27/2021 Are You Passively Exposed To Smoke? No [email or web address] Information not available 12/27/2021 Are There Any Smokers In Your House? Yes [email or web address] Information not available 12/27/2021 How Much Tobacco Do You Smoke? 0.5 PPD [email or web address] Information not available 12/27/2021 Do You Use Sunscreen Routinely? Yes [email or web address] Information not available 12/27/2021 How Many Years Have You Smoked Tobacco? 30 [email or web address] Information not available 12/27/2021 Have You Recently Traveled Abroad? No [email or web address] Information not available 12/27/2021 Do You Have Difficulty Walking Or Climbing Stairs? No [email or web address] Information not available 12/27/2021 Do You Have Any Dietary Restrictions? No [email or web address] Information not available 12/27/2021 Sex: Female Functional Status Question Answer Note LastModified by Organizat ion Details LastModified Time Do you use any illicit or recreational drugs? No [email or web address] Information not available 12/27/2021 Do you or have you ever used any other forms of tobacco or nicotine? No [email or web address] Information not available 11/22/2021 What is your level of alcohol consumption? None [email or web address] Information not available 11/22/2021 Are you currently employed? No [email or web address] Information not available 12/27/2021 Do you have transportation difficulties? No [email or web address] Information not available 12/27/2021 Are you able to walk? YESWOREST hrmludzxq549 Information not available 12/27/2021 Do you have difficulty doing errands alone? No [email or web address] Information not available 12/27/2021 Are you able to care for yourself? Yes yllstknge468 Information not available 12/27/2021 Do you have difficulty dressing or bathing? No [email or web address] Information not available 12/27/2021 What is your exercise level? None [email or web address] Information not available 12/27/2021 Mental Status Question Answer Note LastModified by Organizat ion Details LastModified Time Do you feel stressed (tense, restless, nervous, or anxious, or unable to sleep at night)? [id number] Information not available 12/27/2021 Do you have difficulty concentrating, remembering or making decisions? No [email or web address] Information no t available 12/27/2021 Family History Relationship Description Onset Age of this Age Resolved Age Notes LastModified by Organization Details LastModified Time Brother Family history of diabetes mellitus type 2 [email or web address] Not available 14:10:03 Brother Family history of Respiratory disease [email or web address] Not available 14:10:24 Brother Family history of Hypertension [email or web address] Not available 12/27/2021 14:10:30 Father Family history of leukemia [email or web address] Not available 14:10:41 Sister Family history of diabetes mellitus type 2 [email or web address] Not available 14:10:06 Sister Family history of Hypertension [email or web address] Not available 12/27/2021 14:10:34 Medical History Condition Response Allergies (Food, seasonal, environmental ) Y COPD Y Acid Reflux (GERD) Y High Cholesterol Y Headaches Y Diabetes Y Asthma Y Hypertension Y Gynecological History Statement/Question Response Most Recent Mammogram 05/16/2020 Obstetrics History GPAL:G 0 P 0 0 0 0 Immunizations Vaccine Type Date Status Note Provider Nam e and Address Organization Details Recorded Time COVID-19 vaccine, vector-nr, rS-Ad26, PF, 0.5 mL 1 completed MARKO ANAYANEAR null, [employer] 03/28/2022 09:13:50 Pneumococcal conjugate PCV 13 9 completed MITCHEL ORTIZ null, [employer] 12/27/2021 14:53:59 Influenza, split virus, quadrivalent, preservative 8 completed MITCHEL ORTIZ null, [employer] 12/27/2021 14:53:59 Influenza, split virus, trivalent, preservative 7 completed MARKO MYNEAR null, [employer] 03/28/2022 09:13:50 Influenza, split virus, trivalent, preservative 9 completed MARKO [employer] null, [employer] 03/28/2022 09:13:50 Influenza, split virus, quadrivalent, preservative 0 completed MITCHEL ORTIZ null, [employer] 12/27/2021 14:53:59 pneumococcal polysaccharide PPV23 8 completed MITCHEL ORTIZ null, [employer] 12/27/2021 14:53:59 Influenza, split virus, quadrivalent, preservative 9 completed MITCHEL ORTIZ null, [employer] 12/27/2021 14:53:59 Influenza, split virus, quadrivalent, PF 2 completed Nia Pimentel, JOO [address] [place] [address], [id number], [employer] 01/11/2022 20:43:48 Past Encounters Encounter ID Performer Location Encounter Start Date Encounter Closed Date Diagnosis/Indication Diagnosis SNOMED-CT Code Diagnosis ICD10 Code Diagnosis Note [id number] Jazzy Perez [place] [address] 11/22/2021 13:15:56 11/22/2021 14:27:33 Acute upper respiratory infection 47816163 J06.9 [id number] Nia Pimentel [place] [address] 12/27/2021 13:49:52 12/27/2021 15:19:27 Administration of influenza vaccine 46542029 Z23 Type 2 gavino betes mellitus without complication 271521005 E11.9 History of thromboembolism 706008920 Z86.718 Chronic ob structive pulmonary disease 24319225 J44.9 Opioid dependence 474059 00 F11.20 Impacted c erumen in right ear 7882293644 924996 H61.21 Migraine 67890037 G43.90 9 [id number] Nia Pimentel [place] [address] 03/28/2022 08:43:58 03/28/2022 10:04:55 History of thromboembolism 090187501 Z86.718 Chronic ob structive pulmonary disease 81206132 J44.9 Type 2 gavino betes mellitus without complication 771819374 E11.9 Vitamin D deficiency 347 42395 E55.9 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 Falls safety reviewed with pt. I remain concerned about her use of scheduled medication s, her frequent falls, and noncomplia nce. She states she is transferri ng her care. I believe she remains hypotensiv e due to overuse of narcotics and I have concerns about he risks of Xarelto and her falls. Health Concerns Section Related Observation LastModified by Organization Detai ls LastModified Time None Recorded Concern Status LastModified by Organization Details LastModified Time None Recorded Advance Directives Directive N: Payers Insurance Date Sequence Insurance Name Policy Number Policy Pereira Covered Member ID Pereira Member ID Guarantor Name 04/09/2022 1 [place] [facility] [place]MEDICARE [facility]) [id number] Rere Rivas [id number] Rere Rivas 04/07/2022 [place] [id number] [facility] Rere Rivas [id number] Rere Rivas Notes Date Note Type Note Provider Name and Address Organization Details Recorded Time 2 text/html Upper Respiratory SymptomsReported bypatient.Location:chest; nasal; ears Quality:productive cough;congested;nasal discharge Duration:symptoms lasting less than 2 weeks Context:smoker;allergies; COPD Associated Symptoms:yellow sputum;fever;chills;malai se Pt states that she started running a fever up to 104 on Saturday night. She states that she has taken Tylenol for her symptoms. She reports coughing up yellow sputum and had clear sinus drainage. Pt states she has been very weak and had generalized malaise. Jazzy Perez, LOST AND FOUND CLERK [address] [place], [address], [facility] [email or web address] 11/22/2021 14:21:17 2 text/html COPDReported bypatient.Onset/Timing:in termittent Duration:chronic; has noted for years; attacks are infrequent Severity:slowly worsening; moderate; admitted to hospital 1 times/year Context:hx of smoking Alleviating factors:relieved with antibiotics; relieved with bronchodilator Associated Symptoms:no snoring; no excessive daytime sleepiness; no arousals from sleep; no decrease in exercise capacity; no fatigue; no fever; no weight loss; no chest tightness; no weight gain; no anxiety; no depression;dyspnea during exertion;coughing up sputum;cough;wheezing;obe sityDiabetes F/UReported bypatient.Context:normal range of home blood sugars (in the low 100s); seeing eye doctor regularly; checking feet regularly Associated Symptoms:no weight gain; no weight loss; no dizziness; no sweats; no headaches; no confusion; no increased thirst; no increased appetite; no increased urination; no blurred vision; no calluses on feet;numbness of feetHospitalization Contact RecordReported bypatient.Follow UpHospital: ; date of discharge: (Please enter in format 'MM/DD/YYYY') (12/24/21); Admitted to [facility] on December 22, 2021 for flank pain and urinary tract infection. Nia Pimentel APRN [address] [place], [address], [facility] [employer] 01/11/2022 20:47:45 3 text/html COPDReported bypatient.Onset/Timing:in termittent Duration:chronic; has noted for years Severity:moderate; Uses nebulizer/inhaler an average of 3 times/week lately Context:cigarette smoking; recurrent bronchopulmonary infections Alleviating factors:relieved with antibiotics; relieved with bronchodilator Aggravating factors:worse with cigarette smoking;worse with exertion; worse with URI and seasonal allergies Associated Symptoms:no snoring; no excessive daytime sleepiness; no arousals from sleep; no fever; no weight loss; no obesity; no chest tightness; no weight gain; no anxiety; no depression;dyspnea during exertion;decrease in exercise capacity;fatigue;coughing up sputum;wheezingDiabetes F/UReported bypatient.Labs:last A1C result: 6.3 Context:normal range of home blood sugars (in the low 100s);not seeing eye doctor yearly;not checking feet regularly Associated Symptoms:no weight gain; no weight loss; no dizziness; no sweats; no headaches; no confusion; no increased thirst; no increased appetite; no increased urination; no blurred vision;numbness of feet;calluses on feetHeadacheReported bypatient.Quality:similar to previous headaches Severity:mild Duration:intermittent episodes lasting:; 15-30 days/month Onset/Timing:gradual; gone now Context:related to trauma; fell at her home onto her face approx 1 month ago, she states she is unsure why she fell, she has hx frequent falls. Has hx opiate abuse that leads to hypotension. She is declining xrays and head imaging today. I have voiced my concerns to her pain clinic before about her use of controlled substances. There was no change in their prescriptions for her. She has purple/green fading ecchymosis of both orbits today. 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 I would like to refer her to Cardio due to her frequent falls and risks of use of Xarelto, she declines today stating I think I'll just transfer my care to Dr Campoverde here in town, he told me he would prescribe all my meds for me there and I wouldn't have to drive to the pain clinic in [place] anymore. Nia Pimentel APRN [address] [place], [address], [facility] [employer] 04/15/2022 16:57:00 OBGyn Episode No OBEpisode recorded.
--- OUTSIDE RECORDS SUMMARY | 2024-08-15 20:00 | XMS_ITS | Clinical Summary ---
Author Organization Unknown Care Team Providers Care Motion Picture Set Up Worker Name Role Phone LUIS KURTZ Unavailable Tanya ronenilable HAYES PT, [facility] Unavailable Unavailable VIGNESH SAIL REPAIR PERSON, KALPESH Unavailable Unavailabl e Payers Payer Name Policy Type Policy Number Effective Date Expira tion Date ROSENDAAUTH [id number] Problems Condition Name Condition Details Condition Category Status Onset Date Resolution Date Last Treatment Date Treating Clinician Comments DISLOCATION OF INTERNAL RIGHT HIP PROSTHESIS, SUBS ENCNTR Active 06-18 00:00: 00 CHRONIC OBSTRUCTIVE PULMONARY DISEASE, UNSPECIFIED Active 02-11 00:00: 00 UNSPECIFIED OSTEOARTHRIT IS, UNSPECIFIED SITE Active 02-11 00:00: 00 OTHER CHRONIC PAIN Active 02-11 00:00: 00 DEPENDENCE ON SUPPLEMENTAL OXYGEN Active 02-11 00:00: 00 PENITENTIARY (CURRENT) USE OF ANTICOAGULAN TS Active 02-11 00:00: 00 HISTORY OF FALLING Active 06-18 00:00: 00 Allergies, Adverse Reactions, Alerts Allergy Name Allergy Type Status Severity Reaction(s) Onset Date Inactive Date Treating Clinician Comments TETANUS TOXIODS Propensity to adverse reactions Active 06-18 19:39: 36 TORADOL Propensity to adverse reactions Active 06-18 19:39: 45 CIPROFLOXICI N Propensity to adverse reactions Active 06-18 19:40: 20 ROCEPHIN Propensity to adverse reactions Active 06-18 19:40: 32 DEPAKOTE Propensity to adverse reactions Active 06-18 19:40: 42 CEFDINIR Propensity to adverse reactions Active 06-18 19:41: 11 Medications Ordered Medication Name Filled Medication Name Start Date Stop Date Current Medication? Ordering Clinician Indication Dosage Frequency Signature (SIG) Comments Components oxycodone 5 mg tablet 02-13 00:00: 00 02-25 00:00 :00 No [id number] Per instruc tions Per instructio ns (route: oral) Med Classific ation: Analgesic , Anti-infl ammatory or Antipyret ic tizanidine 4 mg tablet 2023-02 00:00: 00 05-24 23:59 :00 No [id number] MUSCLE RELAXER 1 tablet 3 TIMES DAILY 1 tablet 3 TIMES DAILY (route: oral) Med Classific ation: Locomotor System albuterol sulfate HFA 90 mcg/actuati on aerosol inhaler 2023-02 00:00: 00 05-24 23:59 :00 No [id number] SHORTNESS OF AIR 2 puff EVERY 4 HOURS 2 puff EVERY 4 HOURS (route: inhalation ) Med Classific ation: Respirato ry Therapy Agents azithromyci n 250 mg tablet 2023-02 00:00: 00 02-25 00:00 :00 No [id number] Per instruc tions Per instructio ns (route: oral) Med Classific ation: Anti-Infe ctive Agents fluticasone propionate 50 mcg/actuati on nasal spray,suspe nsion 2023-02 00:00: 00 02-25 00:00 :00 No [id number] Per instruc tions Per instructio ns (route: nasal) Med Classific ation: Respirato ry Therapy Agents montelukast 10 mg tablet 2023-02 00:00: 00 02-25 00:00 :00 No [id number] Per instruc tions Per instructio ns (route: oral) Med Classific ation: Respirato ry Therapy Agents butorphanol 10 mg/mL nasal spray 2023-02 00:00: 00 05-24 23:59 :00 No [id number] MIGRAINES 1 spray EVERY 6 HOURS 1 spray EVERY 6 HOURS (route: nasal) Med Classific ation: Analgesic , Anti-infl ammatory or Antipyret ic gabapentin 600 mg tablet 2023-02 00:00: 00 02-25 00:00 :00 No [id number] Per instruc tions Per instructio ns (route: oral) Med Classific ation: Central Nervous System Agents hydrocodone 7.5 mg-acetamin ophen 325 mg tablet 2023-02 2 00:00: 00 02-25 00:00 :00 No [id number] Per instruc tions Per instructio ns (route: oral) Med Classific ation: Analgesic , Anti-infl ammatory or Antipyret ic Ubrelvy 100 mg tablet 2023-02 00:00: 00 05-24 23:59 :00 No [id number] MIGRAINES 1 tablet DAILY 1 tablet DAILY (route: oral) Med Classific ation: Central Nervous System Agents Benadryl 25 mg capsule 02-25 00:00: 00 05-24 23:59 :00 No [id number] ALLERGIES 1 capsule EVERY 6 HOURS 1 capsule EVERY 6 HOURS (route: oral) Med Classific ation: Respirato ry Therapy Agents benzonatate 200 mg capsule 02-25 00:00: 00 05-24 23:59 :00 No [id number] COUGH 1 capsule 3 TIMES DAILY 1 capsule 3 TIMES DAILY (route: oral) Med Classific ation: Respirato ry Therapy Agents duloxetine 60 mg capsule,del ayed release 02-25 00:00: 00 05-24 23:59 :00 No [id number] DEPRESSION 2 capsule DAILY 2 capsule DAILY (route: oral) Med Classific ation: Central Nervous System Agents gabapentin 300 mg capsule 02-25 00:00: 00 05-24 23:59 :00 No [id number] PAIN 1 capsule 2 TIMES DAILY 1 capsule 2 TIMES DAILY (route: oral) Med Classific ation: Central Nervous System Agents hydrocodone 5 mg-acetamin ophen 325 mg tablet 02-25 00:00: 00 05-24 23:59 :00 No [id number] PAIN 1 tablet 2 TIMES DAILY 1 tablet 2 TIMES DAILY (route: oral) Med Classific ation: Analgesic , Anti-infl ammatory or Antipyret ic ipratropium 0.5 mg-albutero l 3 mg (2.5 mg base)/3 mL nebulizatio n soln 02-25 00:00: 00 05-24 23:59 :00 No [id number] SHORTNESS OF AIR 3 mL EVERY 6 HOURS 3 mL EVERY 6 HOURS (route: inhalation ) Med Classific ation: Respirato ry Therapy Agents montelukast 10 mg tablet 02-25 00:00: 00 05-24 23:59 :00 No [id number] ALLERGIES 1 tablet DAILY 1 tablet DAILY (route: oral) Med Classific ation: Respirato ry Therapy Agents oxygen gas for inhalation 02-25 00:00: 00 05-24 23:59 :00 No [id number] SHORTNESS OF AIR 2 Liter O2 - PRN 2 Liter O2 - PRN (route: inhalation ) Med Classific ation: Medical Supplies and Durable Medical Equipment (DME) promethazin e 25 mg tablet 02-25 00:00: 00 05-24 23:59 :00 No [id number] NAUSEA 1 tablet 2 TIMES DAILY 1 tablet 2 TIMES DAILY (route: oral) Med Classific ation: Respirato ry Therapy Agents Qulipta 60 mg tablet 02-25 00:00: 00 05-24 23:59 :00 No [id number] MIGRAINES 1 tablet DAILY 1 tablet DAILY (route: oral) Med Classific ation: Central Nervous System Agents Xarelto 20 mg tablet 02-25 00:00: 00 05-24 23:59 :00 No [id number] DVT 1 tablet DAILY 1 tablet DAILY (route: oral) Med Classific ation: Hematolog ical Agents butorphanol 10 mg/mL nasal spray 05-15 00:00: 00 06-18 00:00 :00 No [id number] Per instruc tions Per instructio ns (route: nasal) Med Classific ation: Analgesic , Anti-infl ammatory or Antipyret ic gabapentin 600 mg tablet 05-15 00:00: 00 Yes [id number] NERVE PAIN 1 tablet 2 TIMES DAILY 1 tablet 2 TIMES DAILY (route: oral) Med Classific ation: Central Nervous System Agents hydrocodone 5 mg-acetamin ophen 325 mg tablet 05-15 00:00: 00 06-18 00:00 :00 No [id number] Per instruc tions Per instructio ns (route: oral) Med Classific ation: Analgesic , Anti-infl ammatory or Antipyret ic promethazin e 25 mg tablet 05-15 00:00: 00 Yes [id number] NAUSEA Per instruc tions NEEDED Per instructio ns NEEDED (route: oral) Med Classific ation: Respirato ry Therapy Agents Qulipta 60 mg tablet 05-13 00:00: 00 Yes [id number] MIGRAINES 1 tablet DAILY 1 tablet DAILY (route: oral) Med Classific ation: Central Nervous System Agents tizanidine 4 mg tablet 3-24 00:00: 00 Yes [id number] SPASMS 1 tablet 3 TIMES DAILY 1 tablet 3 TIMES DAILY (route: oral) Med Classific ation: Locomotor System docusate sodium 100 mg tablet 06-11 00:00: 00 Yes [id number] BOWELS 1 tablet DAILY 1 tablet DAILY (route: oral) Med Classific ation: Gastroint estinal Therapy Agents duloxetine 60 mg capsule,del ayed release 06-11 00:00: 00 Yes [id number] DEPRESSION 2 capsule DAILY 2 capsule DAILY (route: oral) Med Classific ation: Central Nervous System Agents Feosol 325 mg (65 mg iron) tablet 06-11 00:00: 00 Yes [id number] SUPPLEMENT 1 tablet DAILY 1 tablet DAILY (route: oral) Med Classific ation: Electroly te Balance-N utritiona l Products hydrocodone 7.5 mg-acetamin ophen 325 mg tablet 06-11 00:00: 00 Yes [id number] PAIN 1 tablet 3 TIMES DAILY 1 tablet 3 TIMES DAILY (route: oral) Med Classific ation: Analgesic , Anti-infl ammatory or Antipyret ic levocetiriz ine 5 mg tablet 06-11 00:00: 00 Yes [id number] ALLERGY 1 tablet DAILY 1 tablet DAILY (route: oral) Med Classific ation: Respirato ry Therapy Agents mecobalamin (vitamin B12) 1,000 mcg chewable tablet 06-11 00:00: 00 Yes [id number] SUPPLEMENT 1 tablet DAILY 1 tablet DAILY (route: oral) Med Classific ation: Electroly te Balance-N utritiona l Products montelukast 10 mg tablet 06-11 00:00: 00 Yes [id number] ASTHMA 1 tablet DAILY 1 tablet DAILY (route: oral) Med Classific ation: Respirato ry Therapy Agents Xarelto 20 mg tablet 06-11 00:00: 00 Yes [id number] ANTICOAGULA NT 1 tablet DAILY 1 tablet DAILY (route: oral) Med Classific ation: Hematolog ical Agents albuterol sulfate HFA 90 mcg/actuati on aerosol inhaler 06-11 00:00: 00 Yes [id number] PULMONARY 1 puff EVERY 8 HOURS 1 puff EVERY 8 HOURS (route: inhalation ) Med Classific ation: Respirato ry Therapy Agents Ubrelvy 100 mg tablet 06-11 00:00: 00 Yes [id number] MIGRAINE 1 tablet NEEDED 1 tablet NEEDED (route: oral) Med Classific ation: Central Nervous System Agents oxygen gas for inhalation 06-11 00:00: 00 Yes [id number] SUPPLEMENTA L OXYGEN 2 Liter O2 - CONTINUOUS 2 Liter O2 - CONTINUOUS (route: inhalation ) Med Classific ation: Medical Supplies and Durable Medical Equipment (DME) Immunizations Ordered Immunization Name Filled Immunization Name Date Status Comments Refusal Reason PNEUMOCOCCAL (PPV), PPV 2022-08-27 00:00:00 Vital Signs Vital Name Observation Time Observation Value Commen ts Temperature 2024-07-13 12:48:00.000 97.7 [degF] Temperature 2024-07-07 10:37:00.000 98.6 [degF] Temperature 2024-06-30 11:53:00.000 97.7 [degF] Temperature 2024-06-18 19:36:00.000 98.1 [degF] BMI (%) 2024-06-18 12:19:30.000 24 kg/m2 Height 2024-06-18 12:19:23.000 70 [in_us] Pulse 2024-07-13 12:48:00.000 97 /min Pulse 2024-07-07 10:37:00.000 105 /min Pulse 2024-06-30 11:53:00.000 88 /min Pulse 2024-06-18 19:36:00.000 69 /min O2 Saturation (%) 2024-07-13 12:48:00.000 98 % O2 Saturation (%) 2024-07-07 10:37:00.000 98 % O2 Saturation (%) 2024-06-30 11:53:00.000 97 % O2 Saturation (%) 2024-06-18 19:36:00.000 97 % Respirations 2024-07-13 12:48:00.000 18 /min Respirations 2024-07-07 10:37:00.000 17 /min Respirations 2024-06-30 11:53:00.000 17 /min Respirations 2024-06-18 19:36:00.000 18 /min Weight (lbs) 2024-06-18 12:19:30.000 173 [lb_av] Systolic Blood Pressure 2024-07-13 12:48:00.000 126 mm [Hg] Systolic Blood Pressure 2024-07-07 10:37:00.000 116 mm [Hg] Systolic Blood Pressure 2024-06-30 11:53:00.000 104 mm [Hg] Systolic Blood Pressure 2024-06-18 19:36:00.000 107 mm [Hg] Diastolic Blood Pressure 2024-07-13 12:48:00.000 76 mm [Hg] Diastolic Blood Pressure 2024-07-07 10:37:00.000 72 mm [Hg] Diastolic Blood Pressure 2024-06-30 11:53:00.000 64 mm [Hg] Diastolic Blood Pressure 2024-06-18 19:36:00.000 71 mm [Hg] Plan of Treatment Planned Activity Planned Date Details Comments Future Scheduled Test OCCUPATION AL THERAPIST TO EVALUATE FOR ADLS/IADLS. [code = OCCUPATIONAL THERAPIST TO EVALUATE FOR ADLS/IADLS.] Future Scheduled Test PT/SAIL REPAIR PERSON TO PROVIDE GAIT TRAINING FOR IMPROVED MOBILITY AND /OR TO NORMALIZE GAIT PATTERN [code = PT/SAIL REPAIR PERSON TO PROVIDE GAIT TRAINING FOR IMPROVED MOBILITY AND /OR TO NORMALIZE GAIT PATTERN] Future Scheduled Test THERAPEUTI C EXERCISES AND ESTABLISHING A HOME EXERCISE PROGRAM (PT/SAIL REPAIR PERSON) [code = THERAPEUTIC EXERCISES AND ESTABLISHING A HOME EXERCISE PROGRAM (PT/SAIL REPAIR PERSON)] Future Scheduled Test PT/SAIL REPAIR PERSON TO IDENTIFY FALL RISK FACTORS; EDUCATE THE PATIENT/CAREGIVER ON WAYS TO REDUCE FALL RISK FACTORS AND ESTABLISH HOME EXERCISE PROGRAM TO MINIMIZE FALL RISK. MAY TEACH THE PATIENT FLOOR RECOVERY WHEN CLINICALLY APPROPRIATE [code = PT/SAIL REPAIR PERSON TO IDENTIFY FALL RISK FACTORS; EDUCATE THE PATIENT/CAREGIVER ON WAYS TO REDUCE FALL RISK FACTORS AND ESTABLISH HOME EXERCISE PROGRAM TO MINIMIZE FALL RISK. MAY TEACH THE PATIENT FLOOR RECOVERY WHEN CLINICALLY APPROPRIATE] Future Scheduled Test SIT TO/FRO M STAND TRANSFERS (PT/SAIL REPAIR PERSON) [code = SIT TO/FROM STAND TRANSFERS (PT/SAIL REPAIR PERSON)] Future Scheduled Test PT TO ASSE SS / SAIL REPAIR PERSON TO MONITOR CARDIO/RESPIRATORY SYSTEM; AND NOTIFY THE PHYSICIAN AND/OR THE RN CLINICAL COIL MACHINE OPERATOR FOR PHYSICIAN NOTIFICATION FOR EARLY SIGNS AND SYMPTOMS OF EXACERBATION OR DETERIORATION. [code = PT TO ASSESS / SAIL REPAIR PERSON TO MONITOR CARDIO/RESPIRATORY SYSTEM; AND NOTIFY THE PHYSICIAN AND/OR THE RN CLINICAL COIL MACHINE OPERATOR FOR PHYSICIAN NOTIFICATION FOR EARLY SIGNS AND SYMPTOMS OF EXACERBATION OR DETERIORATION.] Future Scheduled Test PT / SAIL REPAIR PERSON T O MONITOR AND EDUCATE ON OXYGEN SATURATION DURING ADLS/IADLS, NOTIFY PHYSICIAN AND/OR THE RN CLINICAL COIL MACHINE OPERATOR FOR PHYSICIAN NOTIFICATION AND IF O2 SATS BELOW PHYSICIAN ORDERED PARAMETERS AFTER 10 MIN OF REST [code = PT / SAIL REPAIR PERSON TO MONITOR AND EDUCATE ON OXYGEN SATURATION DURING ADLS/IADLS, NOTIFY PHYSICIAN AND/OR THE RN CLINICAL COIL MACHINE OPERATOR FOR PHYSICIAN NOTIFICATION AND IF O2 SATS BELOW PHYSICIAN ORDERED PARAMETERS AFTER 10 MIN OF REST] Future Scheduled Test PT / SAIL REPAIR PERSON M AY EDUCATE ON PAIN MANAGEMENT CLINICALLY INDICATED, INCLUDING NON-PHARMACOLOGICAL PAIN REDUCTION TECHNIQUES [code = PT / SAIL REPAIR PERSON MAY EDUCATE ON PAIN MANAGEMENT CLINICALLY INDICATED, INCLUDING NON-PHARMACOLOGICAL PAIN REDUCTION TECHNIQUES] Future Scheduled Test AGENCY MAY PERFORM A RESUMPTION OF CARE VISIT FOLLOWING ANY HOSPITAL ADMISSION. PT TO EVALUATE, OBSERVE / ASSESS, AND MONITOR, SAIL REPAIR PERSON TO OBSERVE AND MONITOR, PROVIDE SKILLED THERAPEUTIC INTERVENTION, ACTIVITY, EDUCATION, AND TRAINING TO ADDRESS; [code = AGENCY MAY PERFORM A RESUMPTION OF CARE VISIT FOLLOWING ANY HOSPITAL ADMISSION. PT TO EVALUATE, OBSERVE / ASSESS, AND MONITOR, SAIL REPAIR PERSON TO OBSERVE AND MONITOR, PROVIDE SKILLED THERAPEUTIC INTERVENTION, ACTIVITY, EDUCATION, AND TRAINING TO ADDRESS;] Future Scheduled Test NEUROMUSCU LAR RE-EDUCATION / BALANCE / POSTURAL CONTROL (PT) [code = NEUROMUSCULAR RE-EDUCATION / BALANCE / POSTURAL CONTROL (PT)] Future Scheduled Test PT TO ASSE SS / SAIL REPAIR PERSON TO MONITOR FOR AND REPORT EARLY SIGNS OF ANTICOAGULANT TOXICITY TO THE PHYSICIAN AND/OR THE RN CLINICAL COIL MACHINE OPERATOR FOR PHYSICIAN NOTIFICATION AND TO PROVIDE PATIENT/CAREGIVER EDUCATION ON ANTICOAGULANT THERAPY [code = PT TO ASSESS / SAIL REPAIR PERSON TO MONITOR FOR AND REPORT EARLY SIGNS OF ANTICOAGULANT TOXICITY TO THE PHYSICIAN AND/OR THE RN CLINICAL COIL MACHINE OPERATOR FOR PHYSICIAN NOTIFICATION AND TO PROVIDE PATIENT/CAREGIVER EDUCATION ON ANTICOAGULANT THERAPY] Goal Patient Goal - W ANTS TO BE ABLE TO WALK BETTER AND NOT HAVE TO USE THE WALKER Goal Provider Goal - Goal Provider Goal - PT STG: AMBULATION TO PROGRESS FROM CGA TO SBA AND FROM 25 TO 120 FT WITH IMPROVED GAIT PATTERN WITHIN 3 WEEKS. PT LTG: AMB TO PROGRESS TO IND AND SAFE WITH RW/ CANE ON EVEN AND UNEVEN SURFACES X 300 FT IN ORDER TO SAFELY ACCESS VEHICLE FOR MEDICAL APPTS WITHIN 9 WEEKS. PT LTG: PATIENT WILL DEMONSTRATE REDUCED FALL RISK EVIDENCED BY IMPROVED SELF- SELECTED WALKING SPEED (SSWS CUT SCORE 0.6 TO 0.9 INDICATES MODERATE FALL RISK, 0.6 M/S INDICATES HIGH FALL RISK) FROM 0.4 TO 0.8 M/S WITHIN 9 WEEKS. Goal Provider Goal - PT STG: IND WITH HOME PROGRAM WITHIN 2 WEEKS. PT STG: RLE TO PROGRESS FROM -3 TO 3/5 WITHIN 4 WEEKS. PT LTG: PATIENT WILL DEMONSTRATE INCREASED STRENGTH OF RLE FROM -3 TO +3/5 THROUGHOUT WITHIN 9 WEEKS IN ORDER TO SAFELY COMPLETE MOBILITY AND ADL'S. Goal Provider Goal - PT LTG: PATIENT/CAREGIVER WILL DEMONSTRATE ADHERENCE TO FALL REDUCTION SELF-MANAGEMENT AND REDUCING FALL RISK FACTORS TO MINIMIZE FALL RISK BY END OF EPISODE. Goal Provider Goal - PT STG: PATIENT WILL DEMONSTRATE IMPROVED ABILITY TO PERFORM SIT TO/FROM STAND TRANSFERS TO REDUCE THE RISK OF SKIN BREAKDOWN AND REDUCE FALL RISK FROM CGA TO SBA WITHIN 3 WEEKS. PT LTG: TRANSFERS TO PROGRESS TO IND AND SAFE WITHIN 7 WEEKS. Goal Provider Goal - PT LTG: PATIENT WILL NOT EXPERIENCE CARDIAC OR RESPIRATORY COMPLICATIONS THROUGHOUT THE EPISODE OF CARE. Goal Provider Goal - PT LTG: PATIENT WILL MAINTAIN OXYGEN SATURATION WITHIN PHYSICIAN ORDERED PARAMETERS THROUGHOUT EPISODE OF CARE. Goal Provider Goal - PT GOAL: PATIENT WILL DEMONSTRATE UNDERSTANDING OF PAIN MANAGEMENT TECHNIQUES EVIDENCED BY REDUCED PAIN WITHIN 4 WEEKS. Goal Provider Goal - Goal Provider Goal - PT LTG: PATIENT WILL DEMONSTRATE REDUCED FALL RISK EVIDENCED BY TUG TEST (CUT SCORE >11 SECONDS INDICATES INCREASED FALL RISK) IMPROVING FROM 25 TO 14 SEC WITHIN 9 WEEKS. Goal Provider Goal - PT LTG: PATIENT WILL NOT EXHIBIT SIGNS AND SYMPTOMS OF ANTICOAGULANT TOXICITY THROUGHOUT EPISODE OF CARE. Encounters Start Date/Time End Date/Time Encounter Type Admission Type Attending [facility] Care Department Encounter ID Discharge Date Discharge Status Discharge Condition Discharge Reason Percent Goals Met 2024-06-18 00:00:00 2024-08-16 00:00:00 Outpatient [facility] [id number]
== END 2024-07-21 23:59 | disposition home or self-care (01) ==
LOC: LAB.DROPOF 07-22 11:36
PROVIDERS: PCP Nurse Practitioner Family; Visit Provider Nurse Practitioner Family
DX: N39.0 Urinary tract infection, site not specified (principal)
CPT/HCPCS: 87086; 87088